=== PATIENT | female | born 1965 ===

== ENCOUNTER 2021-03-21 02:07 | Inpatient (IN) | payer BC, MEDICARE ==
[2021-03-21 06:28] LABS: Glucose,Whole Blood 152 mg/dL (75-99)
[2021-03-21] MEDS ORDERED: MELOXICAM 7.5 MG TAB PO PRN (08:58)
[2021-03-21] MEDS ORDERED: hydrOXYzine HCL 25 MG TAB PO PRN (08:58)
[2021-03-21] MEDS: PANTOPRAZOLE 40 MG TABLET PO SCH (09:52)
[2021-03-21] MEDS: busPIRone HCl 10 MG TAB PO SCH ×3 (09:52→21:34)
[2021-03-21] MEDS: VENLAFAXINE HCL ER 150 MG CAP PO SCH (09:52)
[2021-03-21] MEDS: CYCLOBENZAPRINE 10 MG TAB PO SCH ×2 (09:52→21:34)
[2021-03-21] MEDS: ATORVASTATIN 10 MG TAB PO SCH (09:52)
--- NOTE | 2021-03-21 10:56 | XR ---
EXAMINATION TYPE: XR chest 1V portable DATE OF EXAM: 03/21/2021 COMPARISON: None INDICATION: Covid TECHNIQUE: Single frontal view of the chest is obtained. FINDINGS: The heart size is normal. The pulmonary vasculature is normal. Diffuse increased lung markings are present bilaterally greater in the left perihilar and lower lobes . IMPRESSION: 1. A few scattered infiltrates greater on the left compatible with atypical pneumonia
[2021-03-21 11:20] LABS: ALT 31 U/L (4-34); AST 53 U/L (14-36); African American GFR (CKD) >90 (>60 ml/min/1.73 sqM); Albumin 3.5 g/dL (3.5-5.0); Alkaline Phosphatase 64 U/L (38-126); Anion Gap 8 mmol/L; Blood Urea Nitrogen 19 mg/dL (7-17); Calcium 9.1 mg/dL (8.4-10.2); Carbon Dioxide 29 mmol/L (22-30); Chloride 102 mmol/L (98-107); Glucose 138 mg/dL (74-99); LDH 1082 U/L (313-618); Non-African American GFR(CKD) >90 (>60 ml/min/1.73 sqM); Sodium 139 mmol/L (137-145); Total Bilirubin 0.3 mg/dL (0.2-1.3); Total Protein 6.4 g/dL (6.3-8.2)
[2021-03-21 11:21] LABS: Basophils % (A) 0 %; Eosinophils % (A) 0 %; HCT 40.2 % (34.0-46.0); HGB 13.2 gm/dL (11.4-16.0); Lymphocytes # (A) 1.5 k/uL (1.0-4.8); Lymphocytes % (A) 12 %; MCH 30.2 pg (25.0-35.0); MCHC 32.9 g/dL (31.0-37.0); MCV 91.8 fL (80.0-100.0); Monocytes # (A) 0.7 k/uL (0-1.0); Monocytes % (A) 6 %; Neutrophils # (A) 10.1 k/uL (1.3-7.7); Neutrophils % (A) 81 %; Platelet Count 512 k/uL (150-450); RBC 4.38 m/uL (3.80-5.40); WBC 12.5 k/uL (3.8-10.6)
[2021-03-21] MEDS: ALBUTEROL HFA INHALER INHALATION SCH ×3 (11:35→19:47)
[2021-03-21] MEDS: SYMBICORT 160-4.5 MCG INHALER INHALATION SCH ×2 (11:35→19:47)
[2021-03-21 11:54] LABS: Glucose,Whole Blood 137 mg/dL (75-99)
[2021-03-21] MEDS: ENOXAPARIN 40 MG/0.4 ML SYRINGE SQ SCH (12:02)
[2021-03-21] MEDS: CHOLECALCIFEROL 10 MCG (400 IU) TABLET PO SCH (12:02)
[2021-03-21] MEDS: ZINC SULFATE 220 MG CAP PO SCH (12:02)
[2021-03-21] MEDS: ASCORBIC ACID 500 MG TAB PO SCH ×2 (12:02→21:34)
[2021-03-21] MEDS: DEXAMETHASONE SOD PHOSPHATE 10 MG/ML 1 ML VIAL IV SCH (12:02)
--- NOTE | 2021-03-21 12:13 | P.CNPUL ---
History of Present Illness Consult date: 03/21/21 Requesting physician: Jameel Hall Reason for consult: dyspnea, cough, hypoxemia, pneumonia, abnormal CXR/CT Chief complaint: Shortness of breath. History of present illness: Pulmonary consult dated 03/21/2021. 55-year-old female that was transferred down from [facility]. The patient apparently became male with a respiratory illness on March 12. She apparently tested positive for coronavirus on March 18. She was there for a couple days, and apparently, because of worsening oxygenation and tolerance of the AIRVO device, she was transferred down for additional evaluation. The patient complains of shortness of breath, cough, fever, and just generally not feeling well. The patient had poor oral intake, as well as muscle aches and joint aches. She received the first of 2 of her buckner virus vaccines. Her was not vaccinated and apparently gave the illness to her. He came to the emergency room, at [place], and received monoclonal antibody. Currently, she is on BiPAP with settings of 12/5 and 70%. Chest x-ray shows diffuse bilateral infiltrates. She's getting saline at 100 mL an hour. She's feeling a bit better today than yesterday. She was at [facility] the , the first, and the second. She was admitted here early this morning. 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 Other medical problems include severe asthma, for which she is on daily prednisone 5 mg, as well as Singulair, Breo, and Fasenra, which is a monoclonal antibody against interleukin-5. In addition, she has a history of hyperlipidemia. White count 12.5, hemoglobin 13.2, hematocrit 40.2, platelet count 512,000. D-dimer is 0.36. Sodium potassium chloride CO2 all normal. Anion gap normal. BUN and creatinine were 19 and 0.48. AST 53, LDH 1082, and C-reactive protein is 5. Review of Systems REVIEW OF SYSTEMS: CONSTITUTIONAL: Fever chills, muscle aches, joint aches, and decreased oral intake. NEUROLOGIC: [ Negative.] HEENT: [ Negative.] CARDIAC: [Negative.] PULMONARY: Shortness of breath, and dry nonproductive cough. GI: [Negative.] : [Negative.] RHEUMATOLOGIC: [ Negative.] IMMUNOLOGIC: [ Negative.] ENDOCRINE: [Negative. ] DERMATOLOGIC: [Negative.] Past Medical History Past Medical History: Hyperlipidemia Additional Past Medical History / Comment(s): fast heart beat History of Any Multi-Drug Resistant Organisms: None Reported Past Surgical History: Cholecystectomy Additional Past Surgical History / Comment(s): spleenectomy, ectopic , rupture cyst Past Anesthesia/Blood Transfusion Reactions: No Reported Reaction Past Psychological History: Depression Smoking Status: Never smoker - Past Family History Father History Unknown: Yes Medications and Allergies Home Medications Medication Instructions Recorded Confirmed Type Benralizumab [Fasenra] 30 mg SQ Q56D 03/21/21 03/21/21 History Cyclobenzaprine [Flexeril] 10 mg PO BID 03/21/21 03/21/21 History Fluticasone/Vilanterol [Breo 1 puff INHALATION RT-DAILY 03/21/21 03/21/21 History Ellipta 200-25 Mcg Inhaler] Meloxicam [Mobic] 15 mg PO DAILY PRN 03/21/21 03/21/21 History Montelukast [Singulair] 10 mg PO HS 03/21/21 03/21/21 History Pantoprazole Sodium [Protonix] 40 mg PO DAILY 03/21/21 03/21/21 History Simvastatin [Zocor] 20 mg PO DAILY 03/21/21 03/21/21 History Venlafaxine HCl ER [Effexor Xr] 150 mg PO DAILY 03/21/21 03/21/21 History busPIRone HCl [Buspar] 10 mg PO TID 03/21/21 03/21/21 History hydrOXYzine HCL [Atarax] 25 mg PO TID PRN 03/21/21 03/21/21 History predniSONE 5 mg PO DAILY 03/21/21 03/21/21 History Allergies Allergy/AdvReac Type Severity Reaction Status Date / Time Penicillins Allergy Anaphylaxis Verified 03/21/21 08:25 Physical Exam Osteopathic Statement: *. No significant issues noted on an osteopathic structural exam other than those noted in the History and Physical/Consult. Vitals: Vital Signs Temp Pulse Resp BP Pulse Ox 03/21/21 08:30 97.1 F L 73 33 H 139/65 93 L 03/21/21 05:00 97.2 F L 76 21 132/69 97 03/21/21 02:38 97.6 F 79 30 H 131/73 93 L Intake and Output 03/20/21 03/21/21 03/21/21 22:59 06:59 14:59 Intake Total 300 Balance 300 Intake: Oral 300 Other: Weight 110 kg 110 kg No acute distress, oriented 3. Currently on BiPAP, without distress. HEENT examination is grossly unremarkable. Neck supple. Full range of motion. No adenopathy thyromegaly or neck vein distention. Cardiovascular examination reveals regular rhythm rate. S1-S2 normal. No S3 or S4. No discernible murmur noted. Heart sounds are distant. Heart rate 73 bpm. Lungs reveal coarse bilateral rhonchi. Minimal crackles. Breath sounds equal bilaterally. No wheezes. Saturations are 93%. Abdomen soft bowel sounds are heard. No masses or tenderness. Extremities are intact. No cyanosis clubbing or edema. Skin is without rash or lesion. Neurologic examination is brief but nonfocal. Results - Laboratory Findings CBC and BMP: 03/21/21 10:19 03/21/21 10:19 PT/INR, D-dimer D-Dimer 0.36 mg/L FEU (<0.60) 03/21/21 10:19 Abnormal lab findings: Abnormal Labs 03/21/21 03/21/21 03/21/21 06:27 10:19 10:19 WBC 12.5 H Plt Count 512 H Neutrophils # 10.1 H BUN 19 H Creatinine 0.48 L Glucose 138 H POC Glucose (mg/dL) 152 H AST 53 H Lactate Dehydrogenase 1082 H C-Reactive Protein 5.0 H 03/21/21 11:46 WBC Plt Count Neutrophils # BUN Creatinine Glucose POC Glucose (mg/dL) 137 H AST Lactate Dehydrogenase C-Reactive Protein - Diagnostic Findings Chest x-ray: image reviewed Assessment and Plan Assessment: Acute hypoxemic respiratory failure, secondary to COVID 19 pneumonia. History of severe asthma, currently on daily prednisone, and a monoclonal antibody against interleukin-5(Fasenra). History of hyperlipidemia. Status post 1 dose of her coronavirus vaccine. Plan: Plan dated 03/21/2021. In my opinion, the patient is beyond the seven-day window for REM. The patient is currently in my opinion is not sick enough to receive the monoclonal antibody against interleukin-6. Hence, the patient's place and an albuterol inhaler, Symbicort, 160/4.5, 2 puffs twice a day, vitamin C, vitamin D3, and zinc, as well as Singulair, Decadron, and Lovenox 40 mg subcu daily. Follow the patient closely. Additional recommendations and suggestions are forthcoming. A chest x-ray and labs are ordered. They are reviewed. Also, paperwork and documen tation from the other hospital are reviewed. Time with Patient: Greater than 30
[2021-03-21 16:46] LABS: Glucose,Whole Blood 167 mg/dL (75-99)
--- NOTE | 2021-03-21 17:14 | P.HPIM ---
History of Present Illness H&P Date: 03/21/21 Chief Complaint: Dyspnea/COVID-19 pneumonia 55-year-old female, with history of hyperlipidemia, transferred to our facility from [facility]. The patient became with a respiratory illness on March 12 and tested positive for coronavirus on March 18. She was there for a couple days, and apparently, because of worsening oxygenation and tolerance of the AIRVO device, she was transferred down for additional evaluation. The patient complains of shortness of breath, cough, fever, and just generally not feeling well. The patient had poor oral intake, as well as muscle aches and joint aches. She received the first of 2 of her buckner virus vaccines. Her w as not vaccinated and apparently gave the illness to her. He came to the emergency room, at [place], and received monoclonal antibody. Currently, she is on BiPAP with settings of 12/5 and 70%. Chest x-ray shows diffuse bilateral infiltrates. She does have a previous history of severe asthma, for which she is on daily prednisone 5 mg, as well as Singulair, Breo, and Fasenra, which is a monoclonal antibody against interleukin-5. In addition, she has a history of hyperlipidemia. White count 12.5, hemoglobin 13.2, hematocrit 40.2, platelet count 512,000. D-dimer is 0.36. Sodium potassium chloride CO2 all normal. Anion gap normal. BUN and creatinine were 19 and 0.48. AST 53, LDH 1082, and C-reactive protein is 5. Review of Systems REVIEW OF SYSTEMS: CONSTITUTIONAL: No fever, no malaise, no fatigue. HEENT: No recent visual problems or hearing problems. Denied any sore throat. CARDIOVASCULAR: No chest pain, orthopnea, PND, no palpitations, no syncope. PULMONARY: No shortness of breath, no cough, no hemoptysis. GASTROINTESTINAL: No diarrhea, no nausea, no vomiting, no abdominal pain. NEUROLOGICAL: No headaches, no weakness, no numbness. HEMATOLOGICAL: Denies any bleeding or petechiae. GENITOURINARY: Denies any burning micturition, frequency, or urgency. MUSCULOSKELETAL/RHEUMATOLOGICAL: Denies any joint pain, swelling, or any muscle pain. ENDOCRINE: Denies any polyuria or polydipsia. The rest of the 14-point review of systems is negative. Past Medical History Past Medical History: Hyperlipidemia Additional Past Medical History / Comment(s): fast heart beat History of Any Multi-Drug Resistant Organisms: None Reported Past Surgical History: Cholecystectomy Additional Past Surgical History / Comment(s): spleenectomy, ectopic , rupture cyst Past Anesthesia/Blood Transfusion Reactions: No Reported Reaction Past Psychological History: Depression Smoking Status: Never smoker - Past Family History Father History Unknown: Yes Medications and Allergies Home Medications Medication Instructions Recorded Confirmed Type Benralizumab [Fasenra] 30 mg SQ Q56D 03/21/21 03/21/21 History Cyclobenzaprine [Flexeril] 10 mg PO BID 03/21/21 03/21/21 History Fluticasone/Vilanterol [Breo 1 puff INHALATION RT-DAILY 03/21/21 03/21/21 History Ellipta 200-25 Mcg Inhaler] Meloxicam [Mobic] 15 mg PO DAILY PRN 03/21/21 03/21/21 History Montelukast [Singulair] 10 mg PO HS 03/21/21 03/21/21 History Pantoprazole Sodium [Protonix] 40 mg PO DAILY 03/21/21 03/21/21 History Simvastatin [Zocor] 20 mg PO DAILY 03/21/21 03/21/21 History Venlafaxine HCl ER [Effexor Xr] 150 mg PO DAILY 03/21/21 03/21/21 History busPIRone HCl [Buspar] 10 mg PO TID 03/21/21 03/21/21 History hydrOXYzine HCL [Atarax] 25 mg PO TID PRN 03/21/21 03/21/21 History predniSONE 5 mg PO DAILY 03/21/21 03/21/21 History Allergies Allergy/AdvReac Type Severity Reaction Status Date / Time Penicillins Allergy Anaphylaxis Verified 03/21/21 08:25 Physical Exam Vitals: Vital Signs Temp Pulse Resp BP Pulse Ox 03/21/21 08:30 97.1 F L 73 33 H 139/65 93 L 03/21/21 05:00 97.2 F L 76 21 132/69 97 03/21/21 02:38 97.6 F 79 30 H 131/73 93 L Intake and Output 03/20/21 03/21/21 03/21/21 22:59 06:59 14:59 Intake Total 300 Balance 300 Intake: Oral 300 Other: Weight 110 kg 110 kg General appearance: Present: average body habitus, cooperative, no acute distress Eyes: Present: anicteric sclerae, EOMI, PERRLA, normal appearance ENT: Present: hearing grossly normal, normal oropharynx Neck: Present: normal ROM. Absent: lymphadenopathy, rigidity, thyromegaly Carotids: negative: bruit present Thyroid: bilateral: normal size, negative: enlarged, nodule Respiratory: bilateral: Scattered rhonchi and wheezes Heart sounds: normal: S1, S2 Abnormal Heart Sounds: Absent: systolic murmur, diastolic murmur General gastrointestinal: Present: normal bowel sounds, soft. Absent: distended, organomegaly, tenderness Genitourinary Comment(s): deferred Integumentary: Present: normal turgor. Absent: jaundiced, rash, ulcer Neurologic: Present: CNII-XII intact. Absent: focal deficits Musculoskeletal: Present: gait normal, strength equal bilaterally Psychiatric: Present: A&O x's 3, appropriate affect, intact judgment & insight Results CBC & Chem 7: 03/21/21 10:19 03/21/21 10:19 Labs: Abnormal Lab Results - Last 24 Hours (Table) 03/21/21 03/21/21 03/21/21 Range/Units 06:27 10:19 10:19 WBC 12.5 H (3.8-10.6) k/uL Plt Count 512 H (150-450) k/uL Neutrophils # 10.1 H (1.3-7.7) k/uL BUN 19 H (7-17) mg/dL Creatinine 0.48 L (0.52-1.04) mg/dL Glucose 138 H (74-99) mg/dL POC Glucose (mg/dL) 152 H (75-99) mg/dL AST 53 H (14-36) U/L Lactate Dehydrogenase 1082 H (313-618) U/L C-Reactive Protein 5.0 H (<1.0) mg/dL Thrombosis Risk Factor Assmnt - Choose All That Apply Any of the Below Risk Factors Present?: Yes Each Factor Represents 1 point: Age 41-60 years, Obesity (BMI >25) Thrombosis Risk Factor Assessment Total Risk Factor Score: 2 Thrombosis Risk Factor Assessment Level: Low Risk Assessment and Plan Assessment: 1. Acute hypoxemic respiratory failure; patient is currently on BiPAP, with FiO 2 of 70% and saturating 91% 2. COVID-19 pneumonia Patient has been evaluated by pulmonary service and is beyond the seven-day window for REM. The patient is currently in my opinion is not sick enough to receive the monoclonal antibody against interleukin-6. Hence, the patient's place and an albuterol inhaler, Symbicort, 160/4.5, 2 puffs twice a day, vitamin C, vitamin D3, and zinc, as well as Singulair, Decadron, and Lovenox 40 mg subcu daily. 3. History of severe asthma; patient is currently on prednisone 5 mg daily and monoclonal anti-body against interleukin-5; Singulair 10 mg daily 4. Hyperlipidemia; Zocor 20 mg daily at bedtime 5. Anxiety/depression; remains on BuSpar 5 mg daily and Effexor 150 mg daily DVT prophylaxis; subcu Lovenox CODE STATUS; DO NOT RESUSCITATE
[2021-03-21 20:02] LABS: Glucose,Whole Blood 200 mg/dL (75-99)
[2021-03-21] MEDS: MONTELUKAST 10 MG TAB PO SCH (21:34)
[2021-03-22 06:05] LABS: Glucose,Whole Blood 146 mg/dL (75-99)
[2021-03-22] MEDS: ALBUTEROL HFA INHALER INHALATION SCH ×4 (08:27→20:24)
[2021-03-22] MEDS: SYMBICORT 160-4.5 MCG INHALER INHALATION SCH ×2 (08:27→20:24)
[2021-03-22] MEDS: PANTOPRAZOLE 40 MG TABLET PO SCH (09:12)
[2021-03-22] MEDS: CHOLECALCIFEROL 10 MCG (400 IU) TABLET PO SCH (09:12)
[2021-03-22] MEDS: CYCLOBENZAPRINE 10 MG TAB PO SCH ×2 (09:12→22:08)
[2021-03-22] MEDS: ATORVASTATIN 10 MG TAB PO SCH (09:12)
[2021-03-22] MEDS: VENLAFAXINE HCL ER 150 MG CAP PO SCH (09:12)
[2021-03-22] MEDS: busPIRone HCl 10 MG TAB PO SCH ×3 (09:12→22:08)
[2021-03-22] MEDS: ASCORBIC ACID 500 MG TAB PO SCH ×2 (09:12→22:08)
[2021-03-22] MEDS: ZINC SULFATE 220 MG CAP PO SCH (09:13)
[2021-03-22] MEDS: ENOXAPARIN 40 MG/0.4 ML SYRINGE SQ SCH (09:13)
[2021-03-22] MEDS: DEXAMETHASONE SOD PHOSPHATE 10 MG/ML 1 ML VIAL IV SCH (09:13)
[2021-03-22] MEDS: BARICITINIB 2 MG TABLET PO SCH ×2 (12:00→12:01)
[2021-03-22 12:04] LABS: Glucose,Whole Blood 151 mg/dL (75-99)
--- NOTE | 2021-03-22 13:54 | P.PN ---
Subjective Progress Note Date: 03/22/21 55-year-old female that was transferred down from [facility]. The patient apparently became male with a respiratory illness on March 12. She apparently tested positive for coronavirus on March 18. She was there for a couple days, and apparently, because of worsening oxygenation and tolerance of the AIRVO device, she was transferred down for additional evaluation. The patient complains of shortness of breath, cough, fever, and just generally not feeling well. The patient had poor oral intake, as well as muscle aches and joint aches. She received the first of 2 of her buckner virus vaccines. Her was not vaccinated and apparently gave the illness to her. He came to the emergency room, at [place], and received monoclonal antibody. Currently, she is on BiPAP with settings of 12/5 and 70%. Chest x-ray shows diffuse bilateral infiltrates. She's getting saline at 100 mL an hour. She's feeling a bit better today than yesterday. She was at [facility] the , the first, and the second. She was admitted here early this morning. 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 Other medical problems include severe asthma, for which she is on daily prednisone 5 mg, as well as Singulair, Breo, and Fasenra, which is a monoclonal antibody against interleukin-5. In addition, she has a history of hyperlipidemia. White count 12.5, hemoglobin 13.2, hematocrit 40.2, platelet count 512,000. D-dimer is 0.36. Sodium potassium chloride CO2 all normal. Anion gap normal. BUN and creatinine were 19 and 0.48. AST 53, LDH 1082, and C-reactive protein is 5. The patient is seen today 03/22/2021 in follow-up on the regular medical floor. She is currently resting fairly comfortably in bed. Awake and alert in mild respiratory distress. Alternating BiPAP 12/5 and 70% FiO2 with 15 L high flow nasal cannula. Blood glucose 151. She remains on Symbicort, albuterol. She is maintained on Decadron, Lovenox, Bariticinib, vitamin supplements. Objective - Vital Signs Vital signs: Vital Signs Temp 97.7 F 03/22/21 08:00 Pulse 77 03/22/21 08:00 Resp 28 H 03/22/21 08:00 BP 121/75 09/04/21 08:00 Pulse Ox 89 L 03/22/21 08:00 Intake & Output 03/21/21 03/22/21 03/22/21 18:59 06:59 18:59 Intake Total 1040 20 128 Balance 1040 20 128 Weight 110 kg 105.4 kg Intake: IV 20 10 Invasive Line 1 20 10 Oral 1040 118 Other: # Voids 2 # Bowel Movements 1 - Exam GENERAL EXAM: Alert, pleasant 55-year-old female patient, alternating with BiPAP and 15 L high flow nasal cannula, fairly comfortable in no apparent distress. HEAD: Normocephalic. EYES: Normal reaction of pupils, equal size. NOSE: Clear with pink turbinates. THROAT: No erythema or exudates. NECK: No masses, no JVD. CHEST: No chest wall deformity. LUNGS: Equal air entry with bibasilar crackles. CVS: S1 and S2 normal with no audible murmur, regular rhythm. ABDOMEN: No hepatosplenomegaly, normal bowel sounds, no guarding or rigidity. SPINE: No scoliosis or deformity SKIN: No rashes CENTRAL NERVOUS SYSTEM: No focal deficits, tone is normal in all 4 extremities. EXTREMITIES: There is no peripheral edema. No clubbing, no cyanosis. Peripheral pulses are intact. - Labs CBC & Chem 7: 03/21/21 10:19 03/21/21 10:19 Labs: Abnormal Lab Results - Last 24 Hours (Table) 03/21/21 03/21/21 03/22/21 Range/Units 16:44 20:00 06:03 POC Glucose (mg/dL) 167 H 200 H 146 H (75-99) mg/dL 03/22/21 Range/Units 11:55 POC Glucose (mg/dL) 151 H (75-99) mg/dL Assessment and Plan Assessment: 1 Acute hypoxemic respiratory failure, secondary to COVID 19 pneumonia. 2 History of severe asthma, currently on daily prednisone, and a monoclonal antibody against interleukin-5(Fasenra). 3 History of hyperlipidemia. 4 Status post 1 dose of her coronavirus vaccine. Plan: The patient was seen and evaluated by Dr. Og Continue Baricitinib, Decadron, Lovenox, vitamin supplements Follow-up inflammatory markers, chest x-ray in a.m. Titrate the FiO2 as tolerated Progress prognosis is guarded We'll continue to follow I, the cosigning physician, performed a history & physical examination of the patient. Lungs sounds with crackles in the bilateral bases. Maintaining O2 saturations in the 90s alternating BiPAP at 70% FiO2 with 15 L high flow nasal cannula. I discussed the assessment and plan of care with my nurse practitioner, Moriah Anna. I attest to the above note as dictated by her.
[2021-03-22 16:54] LABS: Glucose,Whole Blood 142 mg/dL (75-99)
--- NOTE | 2021-03-22 17:37 | P.PN ---
Subjective Progress Note Date: 03/22/21 Principal diagnosis: Acute hypoxemic respiratory failure COVID-19 pneumonia 55-year-old female, with history of hyperlipidemia, transferred to our facility from [facility]. The patient became with a respiratory illness on March 12 and tested positive for coronavirus on March 18. She was there for a couple days, and apparently, because of worsening oxygenation and tolerance of the AIRVO device, she was transferred down for additional evaluation. The patient complains of shortness of breath, cough, fever, and just generally not feeling well. The patient had poor oral intake, as well as muscle aches and joint aches. She received the first of 2 of her buckner virus vaccines. Her was not vaccinated and apparently gave the illness to her. He came to the emergency room, at [place], and received monoclonal antibody. Currently, she is on BiPAP with settings of 12/5 and 70%. Chest x-ray shows diffuse bilateral infiltrates. She does have a previous history of severe asthma, for which she is on daily prednisone 5 mg, as well as Singulair, Breo, and Fasenra, which is a monoclonal antibody against interleukin-5. In addition, she has a history of hyperlipidemia. White count 12.5, hemoglobin 13.2, hematocrit 40.2, platelet count 512,000. D-dimer is 0.36. Sodium potassium chloride CO2 all normal. Anion gap normal. BUN and creatinine were 19 and 0.48. AST 53, LDH 1082, and C-reactive protein is 5. Objective - Vital Signs Vital signs: Vital Signs Temp 97.7 F 03/22/21 08:00 Pulse 77 03/22/21 08:00 Resp 28 H 03/22/21 08:00 BP 121/75 03/22/21 08:00 Pulse Ox 89 L 03/22/21 08:00 Intake & Output 03/21/21 03/22/21 03/22/21 18:59 06:59 18:59 Intake Total 1040 20 128 Balance 1040 20 128 Weight 110 kg 105.4 kg Intake: IV 20 10 Invasive Line 1 20 10 Oral 1040 118 Other: # Voids 2 # Bowel Movements 1 - Exam General appearance: Present: average body habitus, cooperative, no acute distress Respiratory: bilateral: Scattered rhonchi and wheezes Heart sounds: normal: S1, S2 Abnormal Heart Sounds: Absent: systolic murmur, diastolic murmur General gastrointestinal: Present: normal bowel sounds, soft. Absent: distended, organomegaly, tenderness Genitourinary Comment(s): deferred Integumentary: Present: normal turgor. Absent: jaundiced, rash, ulcer Neurologic: Present: CNII-XII intact. Absent: focal deficits Musculoskeletal: Present: gait normal, strength equal bilaterally Psychiatric: Present: A&O x's 3, appropriate affect, intact judgment & insight - Labs CBC & Chem 7: 03/21/21 10:19 03/21/21 10:19 Labs: Abnormal Lab Results - Last 24 Hours (Table) 03/21/21 03/21/21 03/22/21 Range/Units 16:44 20:00 06:03 POC Glucose (mg/dL) 167 H 200 H 146 H (75-99) mg/dL 03/22/21 Range/Units 11:55 POC Glucose (mg/dL) 151 H (75-99) mg/dL Assessment and Plan Assessment: 1. Acute hypoxemic respiratory failure; patient is currently on BiPAP, with FiO2 of 70% and saturating 91% 2. COVID-19 pneumonia Patient has been evaluated by pulmonary service and is beyond the seven-day window for REM. The patient is currently in my opinion is not sick enough to receive the monoclonal antibody against interleukin-6. Hence, the patient's place and an albuterol inhaler, Symbicort, 160/4.5, 2 puffs twice a day, vitamin C, vitamin D3, and zinc, as well as Singulair, Decadron, and Lovenox 40 mg subcu daily. 3. History of severe asthma; patient is currently on prednisone 5 mg daily and monoclonal anti-body against interleukin-5; Singulair 10 mg daily 4. Hyperlipidemia; Zocor 20 mg daily at bedtime 5. Anxiety/depression; remains on BuSpar 5 mg daily and Effexor 150 mg daily DVT prophylaxis; subcu Lovenox CODE STATUS; DO NOT RESUSCITATE
[2021-03-22 20:38] LABS: Glucose,Whole Blood 145 mg/dL (75-99)
[2021-03-22] MEDS: MONTELUKAST 10 MG TAB PO SCH (22:08)
[2021-03-23 06:23] LABS: Glucose,Whole Blood 96 mg/dL (75-99)
--- NOTE | 2021-03-23 07:30 | XR ---
EXAMINATION TYPE: XR chest 1V portable DATE OF EXAM: 03/23/2021 COMPARISON: Radiograph March 21, 2021 HISTORY: COVID TECHNIQUE: Single frontal view of the chest is obtained. FINDINGS: There is improved aeration bilaterally with residual patchy opacities over the left greate r than right lungs. The cardiomediastinal silhouette is stable. IMPRESSION: Multifocal pneumonia with improved aeration bilaterally.
[2021-03-23 09:10] LABS: C Reactive Protein 5.8 mg/dL (<1.0)
[2021-03-23] MEDS: SYMBICORT 160-4.5 MCG INHALER INHALATION SCH ×2 (09:11→20:31)
[2021-03-23] MEDS: ALBUTEROL HFA INHALER INHALATION SCH ×4 (09:11→20:30)
[2021-03-23] MEDS: CYCLOBENZAPRINE 10 MG TAB PO SCH ×2 (09:20→20:30)
[2021-03-23] MEDS: ASCORBIC ACID 500 MG TAB PO SCH ×2 (09:21→20:30)
[2021-03-23] MEDS: ZINC SULFATE 220 MG CAP PO SCH (09:21)
[2021-03-23] MEDS: VENLAFAXINE HCL ER 150 MG CAP PO SCH (09:21)
[2021-03-23] MEDS: CHOLECALCIFEROL 10 MCG (400 IU) TABLET PO SCH (09:21)
[2021-03-23] MEDS: PANTOPRAZOLE 40 MG TABLET PO SCH (09:21)
[2021-03-23] MEDS: busPIRone HCl 10 MG TAB PO SCH ×3 (09:21→20:30)
[2021-03-23] MEDS: ATORVASTATIN 10 MG TAB PO SCH (09:21)
[2021-03-23] MEDS: DEXAMETHASONE SOD PHOSPHATE 10 MG/ML 1 ML VIAL IV SCH (09:22)
[2021-03-23] MEDS: ENOXAPARIN 40 MG/0.4 ML SYRINGE SQ SCH (09:23)
[2021-03-23 12:00] LABS: Glucose,Whole Blood 110 mg/dL (75-99)
[2021-03-23] MEDS: BARICITINIB 2 MG TABLET PO SCH (12:16)
--- NOTE | 2021-03-23 12:53 | P.PN ---
Subjective Progress Note Date: 03/23/21 Principal diagnosis: Coronavirus infection. 55-year-old female that was transferred down from [facility]. The patient apparently became male with a respiratory illness on March 12. She apparently tested positive for coronavirus on March 18. She was there for a couple days, and apparently, because of worsening oxygenation and tolerance of the AIRVO device, she was transferred down for additional evaluation. The patient complains of shortness of breath, cough, fever, and just generally not feeling well. The patient had poor oral intake, as well as muscle aches and joint aches. She received the first of 2 of her buckner virus vaccines. Her was not vaccinated and apparently gave the illness to her. He came to the emergency room, at [place], and received monoclonal antibody. Currently, she is on BiPAP with settings of 12/5 and 70%. Chest x-ray shows diffuse bilateral infiltrates. She's getting saline at 100 mL an hour. She's feeling a bit better today than yesterday. She was at [facility] the , the first, and the second. She was admitted here early this morning. 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 Other medical problems include severe asthma, for which she is on daily prednisone 5 mg, as well as Singulair, [place], and Fasenra, which is a monoclonal antibody against interleukin-5. In addition, she has a history of hyperlipidemia. White count 12.5, hemoglobin 13.2, hematocrit 40.2, platelet count 512,000. D-dimer is 0.36. Sodium potassium chloride CO2 all normal. Anion gap normal. BUN and creatinine were 19 and 0.48. AST 53, LDH 1082, and C-reactive protein is 5. The patient is seen today 03/22/2021 in follow-up on the regular medical floor. She is currently resting fairly comfortably in bed. Awake and alert in mild respiratory distress. Alternating BiPAP 12/5 and 70% FiO2 with 15 L high flow nasal cannula. Blood glucose 151. She remains on Symbicort, albuterol. She is maintained on Decadron, Lovenox, Bariticinib, vitamin supplements. Progress note dated 04/02/2021. This is a 55-year-old female, with a history of coronavirus pneumonia. The patient currently remains on BiPAP, with settings of IPAP 12, EPAP 5, and 70% FiO2. The patient is receiving appropriate medications including Symbicort, albuterol, Decadron, vitamins, Lovenox, and Bariticinib. When asked, the patient states that she is feeling a bit better. Labs today include a sugar of 110, and a d-dimer of 1.45. LDH is 1985, and C-reactive protein is 5.8. Chest x-ray from today is compared to a chest x-ray done on March 21. In our opinion, and also the opinion of the radiologist, the chest x-ray does show improvement. Objective - Vital Signs Vital signs: Vital Signs Temp 97.7 F 03/23/21 04:00 Pulse 69 03/23/21 04:00 Resp 26 H 03/23/21 04:00 BP 107/69 03/23/21 04:00 Pulse Ox 92 L 03/23/21 04:00 Intake & Output 03/22/21 03/23/21 03/23/21 18:59 06:59 18:59 Intake Total 1098 20 240 Balance 1098 20 240 Weight 107 kg Intake: IV 20 20 Invasive Line 1 20 20 Oral 1078 240 Other: # Voids 2 3 - Exam Oriented 3, mild conversational dyspnea, without audible wheezing, or use of accessory muscles. HEENT examination is grossly unremarkable. BiPAP mask in place. Neck supple. Full range of motion. No adenopathy thyromegaly or neck vein distention. Cardiovascular examination reveals regular rhythm rate. S1-S2 normal. No S3 or S4. No discernible murmur noted. Heart sounds are very distant. Heart rate 69 bpm. Lungs reveal diffuse bilateral rhonchi. No wheezes or crackles. Breath sounds equal bilaterally. She does not take deep breaths. Abdomen soft bowel sounds are heard. No masses or tenderness. Extremities are intact. No cyanosis clubbing or edema. Skin is without rash or lesion. Neurologic examination is brief but nonfocal. - Labs CBC & Chem 7: 03/21/21 10:19 03/21/21 10:19 Labs: Abnormal Lab Results - Last 24 Hours (Table) 03/22/21 03/22/21 03/23/21 Range/Units 16:52 20:37 07:35 D-Dimer 1.45 H (<0.60) mg/L FEU POC Glucose (mg/dL) 142 H 145 H (75-99) mg/dL Lactate Dehydrogenase (313-618) U/L C-Reactive Protein (<1.0) mg/dL 03/23/21 03/23/21 Range/Units 07:35 11:55 D-Dimer (<0.60) mg/L FEU POC Glucose (mg/dL) 110 H (75-99) mg/dL Lactate Dehydrogenase 985 H (313-618) U/L C-Reactive Protein 5.8 H (<1.0) mg/dL Assessment and Plan Assessment: Acute hypoxemic respiratory failure, secondary to COVID 19 pneumonia. History of severe asthma, currently on daily prednisone, and a monoclonal antibody against interleukin-5(Fasenra). History of hyperlipidemia. Status post 1 dose of her coronavirus vaccine. Plan: Plan dated 03/21/2021. In my opinion, the patient is beyond the seven-day window for REM. The patient is currently in my opinion is not sick enough to receive the monoclonal antibody against interleukin-6. Hence, the patient's place and an albuterol inhaler, Symbicort, 160/4.5, 2 puffs twice a day, vitamin C, vitamin D3, and zinc, as well as Singulair, Decadron, and Lovenox 40 mg subcu daily. Follow the patient closely. Additional recommendations and suggestions are forthcoming. A chest x-ray and labs are ordered. They are reviewed. Also, paperwork and documentation from the other hospital are reviewed. Plan dated 03/23/2021. Currently, the patient feels like she is improved. Her chest x-ray today compared to the x-ray done on March 21, certainly better. She remains on all appropriate medications. The patient was not a candidate for REM. She is receiving all other appropriate medications including Decadron, Lovenox, vitamins, and the monoclonal antibody against interleukin-6. We will continue to follow. The patient has made herself a no code. She would not want me chanical ventilation. Time with Patient: Less than 30
[2021-03-23 17:21] LABS: Glucose,Whole Blood 162 mg/dL (75-99)
--- NOTE | 2021-03-23 17:52 | P.PN ---
Subjective Progress Note Date: 03/23/21 Principal diagnosis: Acute hypoxemic respiratory failure COVID-19 pneumonia 55-year-old female, with history of hyperlipidemia, transferred to our facility from [facility]. The patient became with a respiratory illness on March 12 and tested positive for coronavirus on March 18. She was there for a couple days, and apparently, because of worsening oxygenation and tolerance of the AIRVO device, she was transferred down for additional evaluation. The patient complains of shortness of breath, cough, fever, and just generally not feeling well. The patient had poor oral intake, as well as muscle aches and joint aches. She received the first of 2 of her buckner virus vaccines. Her was not vaccinated and apparently gave the illness to her. He came to the emergency room, at [place], and received monoclonal antibody. Currently, she is on BiPAP with settings of 12/5 and 70%. Chest x-ray shows diffuse bilateral infiltrates. She does have a previous history of severe asthma, for which she is on daily prednisone 5 mg, as well as Singulair, Breo, and Fasenra, which is a monoclonal antibody against interleukin-5. In addition, she has a history of hyperlipidemia. White count 12.5, hemoglobin 13.2, hematocrit 40.2, platelet count 512,000. D-dimer is 0.36. Sodium potassium chloride CO2 all normal. Anion gap normal. BUN and creatinine were 19 and 0.48. AST 53, LDH 1082, and C-reactive protein is 5. 03/23/2021 The patient is seen and evaluated in room at bedside; currently remains on BiPA P, with settings of IPAP 12, EPAP 5, and 70% FiO2. The patient is receiving appropriate medications including Symbicort, albuterol, Decadron, vitamins, Lovenox, and Bariticinib. When asked, the patient states that she is feeling a bit better. Labs today include a sugar of 110, and a d-dimer of 1.45. LDH is 1985, and C-reactive protein is 5.8. Chest x-ray from today is compared to a chest x-ray done on March 21, does show improvement. Objective - Vital Signs Vital signs: Vital Signs Temp 97.7 F 03/23/21 04:00 Pulse 69 03/23/21 04:00 Resp 26 H 03/23/21 04:00 BP 107/69 03/23/21 04:00 Pulse Ox 92 L 03/23/21 04:00 Intake & Output 03/22/21 03/23/21 03/23/21 18:59 06:59 18:59 Intake Total 1098 20 240 Balance 1098 20 240 Weight 107 kg Intake: IV 20 20 Invasive Line 1 20 20 Oral 1078 240 Other: # Voids 2 3 - Exam General appearance: Present: average body habitus, cooperative, no acute distress Respiratory: bilateral: Scattered rhonchi and wheezes Heart sounds: normal: S1, S2 Abnormal Heart Sounds: Absent: systolic murmur, diastolic murmur General gastrointestinal: Present: normal bowel sounds, soft. Absent: dis tended, organomegaly, tenderness Genitourinary Comment(s): deferred Integumentary: Present: normal turgor. Absent: jaundiced, rash, ulcer Neurologic: Present: CNII-XII intact. Absent: focal deficits Musculoskeletal: Present: gait normal, strength equal bilaterally Psychiatric: Present: A&O x's 3, appropriate affect, intact judgment & insight - Labs CBC & Chem 7: 03/21/21 10:19 03/21/21 10:19 Labs: Abnormal Lab Results - Last 24 Hours (Table) 03/22/21 03/22/21 03/22/21 Range/Units 11:55 16:52 20:37 D-Dimer (<0.60) mg/L FEU POC Glucose (mg/dL) 151 H 142 H 145 H (75-99) mg/dL Lactate Dehydrogenase (313-618) U/L C-Reactive Protein (<1.0) mg/dL 03/23/21 03/23/21 Range/Units 07:35 07:35 D-Dimer 1.45 H (<0.60) mg/L FEU POC Glucose (mg/dL) (75-99) mg/dL Lactate Dehydrogenase 985 H (313-618) U/L C-Reactive Protein 5.8 H (<1.0) mg/dL Assessment and Plan Assessment: 1. Acute hypoxemic respiratory failure; patient is currently on BiPAP, with FiO2 of 70% and saturating 91% 2. COVID-19 pneumonia Patient has been evaluated by pulmonary service and is beyond the seven-day window for REM. The patient is currently in my opinion is not sick enough to receive the monoclonal antibody against interleukin-6. Hence, the patient's place and an albuterol inhaler, Symbicort, 160/4.5, 2 puffs twice a day, vitamin C, vitamin D3, and zinc, as well as Singulair, Decadron, and Lovenox 40 mg subcu daily. 3. History of severe asthma; patient is currently on prednisone 5 mg daily and monoclonal anti-body against interleukin-5; Singulair 10 mg daily 4. Hyperlipidemia; Zocor 20 mg daily at bedtime 5. Anxiety/depression; remains on BuSpar 5 mg daily and Effexor 150 mg daily DVT prophylaxis; subcu Lovenox CODE STATUS; DO NOT RESUSCITATE
[2021-03-23 20:22] LABS: Glucose,Whole Blood 130 mg/dL (75-99)
[2021-03-23] MEDS: MONTELUKAST 10 MG TAB PO SCH (20:30)
[2021-03-24 06:23] LABS: Glucose,Whole Blood 103 mg/dL (75-99)
[2021-03-24] MEDS: ALBUTEROL HFA INHALER INHALATION SCH ×4 (08:49→20:04)
[2021-03-24] MEDS: SYMBICORT 160-4.5 MCG INHALER INHALATION SCH ×2 (08:49→20:04)
[2021-03-24] MEDS: ENOXAPARIN 40 MG/0.4 ML SYRINGE SQ SCH (09:31)
[2021-03-24] MEDS: ASCORBIC ACID 500 MG TAB PO SCH ×2 (09:31→21:30)
[2021-03-24] MEDS: busPIRone HCl 10 MG TAB PO SCH ×3 (09:31→21:30)
[2021-03-24] MEDS: PANTOPRAZOLE 40 MG TABLET PO SCH (09:31)
[2021-03-24] MEDS: ZINC SULFATE 220 MG CAP PO SCH (09:31)
[2021-03-24] MEDS: DEXAMETHASONE SOD PHOSPHATE 10 MG/ML 1 ML VIAL IV SCH (09:31)
[2021-03-24] MEDS: CYCLOBENZAPRINE 10 MG TAB PO SCH ×2 (09:31→21:30)
[2021-03-24] MEDS: CHOLECALCIFEROL 10 MCG (400 IU) TABLET PO SCH (09:31)
[2021-03-24] MEDS: VENLAFAXINE HCL ER 150 MG CAP PO SCH (09:31)
[2021-03-24] MEDS: ATORVASTATIN 10 MG TAB PO SCH (09:31)
[2021-03-24 12:11] LABS: Glucose,Whole Blood 107 mg/dL (75-99)
[2021-03-24] MEDS: methylPREDNISolone SOD SUCCI 125 MG/2 ML VIAL IV SCH ×3 (12:23→23:38)
[2021-03-24] MEDS: BARICITINIB 2 MG TABLET PO SCH (12:24)
--- NOTE | 2021-03-24 13:06 | P.PN ---
Subjective Progress Note Date: 03/24/21 55-year-old female that was transferred down from [facility]. The patient apparently became male with a respiratory illness on March 12. She apparently tested positive for coronavirus on March 18. She was there for a couple days, and apparently, because of worsening oxygenation and tolerance of the AIRVO device, she was transferred down for additional evaluation. The patient complains of shortness of breath, cough, fever, and just generally not feeling well. The patient had poor oral intake, as well as muscle aches and joint aches. She received the first of 2 of her buckner virus vaccines. Her was not vaccinated and apparently gave the illness to her. He came to the emergency room, at [place], and received monoclonal antibody. Currently, she is on BiPAP with settings of 12/5 and 70%. Chest x-ray shows diffuse bilateral infiltrates. She's getting saline at 100 mL an hour. She's feeling a bit better today than yesterday. She was at [facility] the , the first, and the second. She was admitted here early this morning. 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 Other medical problems include severe asthma, for which she is on daily prednisone 5 mg, as well as Singulair, Breo, and Fasenra, which is a monoclonal antibody against interleukin-5. In addition, she has a history of hyperlipidemia. White count 12.5, hemoglobin 13.2, hematocrit 40.2, platelet count 512,000. D-dimer is 0.36. Sodium potassium chloride CO2 all normal. Anion gap normal. BUN and creatinine were 19 and 0.48. AST 53, LDH 1082, and C-reactive protein is 5. The patient is seen today 03/22/2021 in follow-up on the regular medical floor. She is currently resting fairly comfortably in bed. Awake and alert in mild respiratory distress. Alternating BiPAP 12/5 and 70% FiO2 with 15 L high flow nasal cannula. Blood glucose 151. She remains on Symbicort, albuterol. She is maintained on Decadron, Lovenox, Bariticinib, vitamin supplements. The patient is seen today 03/24/2021 in follow-up on the regular medical floor. She is currently sitting up at the bedside. Awake and alert in no acute distress. She is still requiring BiPAP support 12/5 and 70% FiO2 to maintain O2 saturations in the 90s. She is able to tolerate 15 L high flow nasal cannula for meals. She is afebrile. Blood glucose 107. She remains on Symbicort, albuterol. Bariticinib. Decadron. Vitamin supplements. Lovenox for DVT prophylaxis. Objective - Vital Signs Vital signs: Vital Signs Temp 98.2 F 03/24/21 08:00 Pulse 79 03/24/21 08:00 Resp 26 H 03/24/21 08:00 BP 98/55 03/24/21 08:00 Pulse Ox 95 03/24/21 08:00 Intake & Output 03/23/21 03/24/21 03/24/21 18:59 06:59 18:59 Intake Total 2019 20 410 Balance 2019 20 410 Weight 105 kg Intake: IV 20 20 10 Invasive Line 1 20 10 Invasive Line 2 10 10 Oral 2000 400 Other: # Voids 2 3 - Exam GENERAL EXAM: Alert, pleasant 55-year-old female patient, alternating with BiPAP and 15 L high flow nasal cannula, fairly comfortable in mild respiratory distress. HEAD: Normocephalic. EYES: Normal reaction of pupils, equal size. NOSE: Clear with pink turbinates. THROAT: No erythema or exudates. NECK: No masses, no JVD. CHEST: No chest wall deformity. LUNGS: Equal air entry with bibasilar crackles. CVS: S1 and S2 normal with no audible murmur, regular rhythm. ABDOMEN: No hepatosplenomegaly, normal bowel sounds, no guarding or rigidity. SPINE: No scoliosis or deformity SKIN: No rashes CENTRAL NERVOUS SYSTEM: No focal deficits, tone is normal in all 4 extremities. EXTREMITIES: There is no peripheral edema. No clubbing, no cyanosis. Pe ripheral pulses are intact. - Labs CBC & Chem 7: 03/21/21 10:19 03/21/21 10:19 Labs: Abnormal Lab Results - Last 24 Hours (Table) 03/23/21 03/23/21 03/24/21 Range/Units 17:19 20:20 06:21 POC Glucose (mg/dL) 162 H 130 H 103 H (75-99) mg/dL 03/24/21 Range/Units 12:08 POC Glucose (mg/dL) 107 H (75-99) mg/dL Assessment and Plan Assessment: 1 Acute hypoxemic respiratory failure, secondary to COVID 19 pneumonia. Outside the window for Remdesivir. 2 History of severe asthma, currently on daily prednisone, and a monoclonal antibody against interleukin-5(Fasenra). 3 History of hyperlipidemia. 4 Status post 1 dose of her coronavirus vaccine. Plan: The patient was seen and evaluated by Dr. Og Continue Baricitinib, Lovenox, vitamin supplements Changed to IV Solu-Medrol 60 mg every 6, DC Decadron Follow-up inflammatory markers, chest x-ray in a.m. Titrate the FiO2 as tolerated We'll continue to follow I, the cosigning physician, performed a history & physical examination of the patient. Lungs sounds with crackles in the bilateral bases. Maintaining O2 saturations in the 90s alternating BiPAP 12/5 at 70% FiO2 alternating with 15 L high flow nasal cannula. I discussed the assessment and plan of care with my nurse practitioner, Moriah Anna. I attest to the above note as dictated by her.
--- NOTE | 2021-03-24 15:36 | P.PN ---
Subjective 55-year-old female, with history of hyperlipidemia, transferred to our facility from [facility]. The patient became with a respiratory illness on March 12 and tested positive for coronavirus on March 18. She was there for a couple days, and apparently, because of worsening oxygenation and tolerance of the AIRVO device, she was transferred down for additional evaluation. The patient complains of shortness of breath, cough, fever, and just generally not feeling well. The patient had poor oral intake, as well as muscle aches and joint aches. She received the first of 2 of her buckner virus vaccines. Her was not vaccinated and apparently gave the illness to her. He came to the emergency room, at [place], and received monoclonal antibody. Currently, she is on BiPAP with settings of 12/5 and 70%. Chest x-ray shows diffuse bilateral infiltrates. She does have a previous history of severe asthma, for which she is on daily prednisone 5 mg, as well as Singulair, Breo, and Fasenra, which is a monoclonal antibody against interleukin-5. In addition, she has a history of hyperlipidemia. White count 12.5, hemoglobin 13.2, hematocrit 40.2, platelet count 512,000. D-dimer is 0.36. Sodium potassium chloride CO2 all normal. Anion gap normal. BUN and creatinine were 19 and 0.48. AST 53, LDH 1082, and C-reactive protein is 5. 03/23/2021 The patient is seen and evaluated in room at bedside; currently remains on BiPAP, with settings of IPAP 12, EPAP 5, and 70% FiO2. The patient is receiving appropriate medications including Symbicort, albuterol, Decadron, vitamins, Lovenox, and Bariticinib. When asked, the patient states that she is feeling a bit better. Labs today include a sugar of 110, and a d-dimer of 1.45. LDH is 1985, and C-reactive protein is 5.8. Chest x-ray from today is compared to a chest x-ray done on March 21, does show improvement. 03/24/2021 Patient is a pleasant 55 years old male who presents with respiratory distress and hypoxia secondary to bilateral: Pneumonia he is been followed closely by pulmonary team, currently he is receiving dexamethasone twitches/today to Solu- Medrol 60 mg. Also his receiving Baricitinib till 04/04. He is also covered with vitamin C, D and zinc. On Singulair. Today he was sitting in chair able to talk with some dyspnea. He denies chest p ain or diarrhea. Tachypneic with a breathing rate 18-26. Requirements stable needed and BiPAP and at 15 L via high flow nasal cannula with FiO2 of 70%. Rest of Vitas looks stable. Repeat chest x-ray and inflammatory markers and BMP in the morning All his questions were answered Objective - Vital Signs Vital signs: Vital Signs Temp 98.0 F 03/24/21 12:00 Pulse 80 03/24/21 12:00 Resp 26 H 03/24/21 12:00 BP 99/55 03/24/21 12:00 Pulse Ox 88 L 03/24/21 12:00 Intake & Output 03/23/21 03/24/21 03/24/21 18:59 06:59 18:59 Intake Total 2019 20 890 Balance 2019 890 Weight 105 kg Intake: IV 20 20 10 Invasive Line 1 20 10 Invasive Line 2 10 10 Oral 1999 880 Other: # Voids 2 3 - Exam GENERAL: The patient is alert and oriented x3, not in any acute distress. Well developed, well nourished. HEENT: Pupils are round and equally reacting to light. EOMI. No scleral icterus. No conjunctival pallor. Normocephalic, atraumatic. No pharyngeal erythema. No thyromegaly. CARDIOVASCULAR: S1 and S2 present. No murmurs, rubs, or gallops. -PULMONARY: Chest is clear to auscultation, no wheezing. bilateral crepitation. tachypneic ABDOMEN: Soft, nontender, nondistended, normoactive bowel sounds. No palpable organomegaly. MUSCULOSKELETAL: No joint swelling or deformity. EXTREMITIES: No cyanosis, clubbing, or pedal edema. NEUROLOGICAL: Gross neurological examination did not reveal any focal deficits. SKIN: No rashes. no petechiae. - Labs CBC & Chem 7: 03/21/21 10:19 03/21/21 10:19 Labs: Abnormal Lab Results - Last 24 Hours (Table) 03/23/21 03/23/21 03/24/21 Range/Units 17:19 20:20 06: POC Glucose (mg/dL) 162 H 130 H 103 H (75-99) mg/dL 03/24/21 Range/Units 12:08 POC Glucose (mg/dL) 107 H (75-99) mg/dL Assessment and Plan Assessment: Assessment and Plan 1. Acute hypoxemic respiratory failure; patient is currently on BiPAP, with FiO2 of 70% and saturating in 90s percent 2. COVID-19 pneumonia Patient has been evaluated by pulmonary service and is beyond the seven-day window for REM. the patient's place and an albuterol inhaler, Symbicort, 160/4.5, 2 puffs twice a day, vitamin C, vitamin D3, and zinc, as well as Singulair, Solu-Medrol 60 mg, and Lovenox 40 mg subcu daily. 3. History of severe asthma; patient is currently on prednisone 5 mg daily and monoclonal anti-body against interleukin-5; Singulair 10 mg daily 4. Hyperlipidemia; Zocor 20 mg daily at bedtime 5. Anxiety/depression; remains on BuSpar 5 mg daily and Effexor 150 mg daily DVT prophylaxis; subcu Lovenox CODE STATUS; DO NOT RESUSCITATE
[2021-03-24 16:55] LABS: Glucose,Whole Blood 168 mg/dL (75-99)
[2021-03-24 20:39] LABS: Glucose,Whole Blood 217 mg/dL (75-99)
[2021-03-24] MEDS ORDERED: INSULIN ASPART (NovoLOG) 100 UNIT/ML VIAL SQ ONE (21:20)
[2021-03-24] MEDS: MONTELUKAST 10 MG TAB PO SCH (21:30)
[2021-03-25 05:56] LABS: Glucose,Whole Blood 137 mg/dL (75-99)
[2021-03-25] MEDS: methylPREDNISolone SOD SUCCI 125 MG/2 ML VIAL IV SCH ×4 (06:37→23:30)
[2021-03-25] MEDS: INSULIN ASPART (NovoLOG) 100 UNIT/ML VIAL SQ SCH ×4 (06:37→20:28)
[2021-03-25] MEDS: ALBUTEROL HFA INHALER INHALATION SCH ×4 (08:16→20:52)
[2021-03-25] MEDS: SYMBICORT 160-4.5 MCG INHALER INHALATION SCH ×2 (08:16→20:52)
[2021-03-25 08:55] LABS: African American GFR (CKD) >90 (>60 ml/min/1.73 sqM); Anion Gap 7 mmol/L; Blood Urea Nitrogen 24 mg/dL (7-17); C Reactive Protein 3.7 mg/dL (<1.0); Calcium 9.2 mg/dL (8.4-10.2); Carbon Dioxide 28 mmol/L (22-30); Chloride 98 mmol/L (98-107); Glucose 139 mg/dL (74-99); LDH 1038 U/L (313-618); Non-African American GFR(CKD) >90 (>60 ml/min/1.73 sqM); Potassium 5.9 mmol/L (3.5-5.1); Sodium 133 mmol/L (137-145)
[2021-03-25] MEDS: VENLAFAXINE HCL ER 150 MG CAP PO SCH (08:59)
[2021-03-25] MEDS: ATORVASTATIN 10 MG TAB PO SCH (08:59)
[2021-03-25] MEDS: CHOLECALCIFEROL 10 MCG (400 IU) TABLET PO SCH (08:59)
[2021-03-25] MEDS: ZINC SULFATE 220 MG CAP PO SCH (08:59)
[2021-03-25] MEDS: busPIRone HCl 10 MG TAB PO SCH ×3 (08:59→20:28)
[2021-03-25] MEDS: ASCORBIC ACID 500 MG TAB PO SCH ×2 (08:59→20:28)
[2021-03-25] MEDS: ENOXAPARIN 40 MG/0.4 ML SYRINGE SQ SCH (09:00)
[2021-03-25] MEDS: PANTOPRAZOLE 40 MG TABLET PO SCH (09:00)
[2021-03-25] MEDS: CYCLOBENZAPRINE 10 MG TAB PO SCH ×2 (09:01→20:28)
--- NOTE | 2021-03-25 10:15 | XR ---
EXAMINATION TYPE: XR chest 1V portable DATE OF EXAM: 03/25/2021 COMPARISON: 03/23/2021 INDICATION: Covid TECHNIQUE: Single frontal view of the chest is obtained. FINDINGS: The heart size is enlarged. The pulmonary vasculature is prominent. Diffuse increased lung markings are present. Peripheral infiltrates are noted more so on the right. F indings can be compatible with atypical pneumonia. IMPRESSION: 1. Findings which can be compatible with atypical pneumonia. 2. Cardiomegaly with prominent vascular markings.
[2021-03-25 11:40] LABS: Glucose,Whole Blood 134 mg/dL (75-99)
[2021-03-25] MEDS: BARICITINIB 2 MG TABLET PO SCH (12:19)
[2021-03-25 13:21] LABS: C Reactive Protein 3.3 mg/dL (<1.0)
--- NOTE | 2021-03-25 13:31 | P.PN ---
Subjective 55-year-old female, with history of hyperlipidemia, transferred to our facility from [facility]. The patient became with a respiratory illness on March 12 and tested positive for coronavirus on March 18. She was there for a couple days, and apparently, because of worsening oxygenation and tolerance of the AIRVO device, she was transferred down for additional evaluation. The patient complains of shortness of breath, cough, fever, and just generally not feeling well. The patient had poor oral intake, as well as muscle aches and joint aches. She received the first of 2 of her buckner virus vaccines. Her was not vaccinated and apparently gave the illness to her. He came to the emergency room, at [facility], and received monoclonal antibody. Currently, she is on BiPAP with settings of 12/5 and 70%. Chest x-ray shows diffuse bilateral infiltrates. She does have a previous history of severe asthma, for which she is on daily prednisone 5 mg, as well as Singulair, Breo, and Fasenra, which is a monoclonal antibody against interleukin-5. In addition, she has a history of hyperlipidemia. White count 12.5, hemoglobin 13.2, hematocrit 40.2, platelet count 512,000. D-dimer is 0.36. Sodium potassium chloride CO2 all normal. Anion gap normal. BUN and creatinine were 19 and 0.48. AST 53, LDH 1082, and C-reactive protein is 5. 03/23/2021 The patient is seen and evaluated in room at bedside; currently remains on BiPAP, with settings of IPAP 12, EPAP 5, and 70% FiO2. The patient is receiving appropriate medications including Symbicort, albuterol, Decadron, vitamins, Lovenox, and Bariticinib. When asked, the patient states that she is feeling a bit better. Labs today include a sugar of 110, and a d-dimer of 1.45. LDH is 1985, and C-reactive protein is 5.8. Chest x-ray from today is compared to a chest x-ray done on March 21, does show improvement. 03/24/2021 Patient is a pleasant 55 years old male who presents with respiratory distress and hypoxia secondary to bilateral: Pneumonia he is been followed closely by pulmonary team, currently he is receiving dexamethasone twitches/today to Solu- Medrol 60 mg. Also his receiving Baricitinib till 04/04. He is also covered with vitamin C, D and zinc. On Singulair. Today he was sitting in chair able to talk with some dyspnea. He denies chest p ain or diarrhea. Tachypneic with a breathing rate 18-26. Requirements stable needed and BiPAP and at 15 L via high flow nasal cannula with FiO2 of 70%. Rest of Vitas looks stable. Repeat chest x-ray and inflammatory markers and BMP in the morning All his questions were answered Patient is still dyspneic and cystoscopy on BiPAP, she was placed on 15 L oxygen via nasal cannula treat she desaturated to mid 80s.. She still here for bilateral: Pneumonia and chest x-ray today showing persistent atypical pneumonia with prominent vascular markings. However she is awake and talking a ppropriately. A d-dimer was elevated today at 3.2, her lactate dehydrogenase is slightly trending down to 1038, While C-reactive protein improved to 3.7. She is covered with Solu-Medrol 60 mg, Baricitinib. Multiple vitamins and Lovenox 40 mg per pulmonary team recommendation wh the patient closely Objective - Vital Signs Vital signs: Vital Signs Temp 98.0 F 03/25/21 12:00 Pulse 77 03/25/21 12:00 Resp 18 03/25/21 12:00 BP 112/77 03/25/21 12:00 Pulse Ox 95 03/25/21 12:00 Intake & Output 03/24/21 03/25/21 03/25/21 18:59 06:59 18:59 Intake Total 1620 10 Balance 1620 10 Weight 104.5 kg Intake: IV 20 10 Invasive Line 2 20 10 Oral 1600 Other: # Voids 1 - Exam GENERAL: The patient is alert and oriented x3, not in any acute distress. Well developed, well nourished. HEENT: Pupils are round and equally reacting to light. EOMI. No scleral icterus. No conjunctival pallor. Normocephalic, atraumatic. No pharyngeal erythema. No thyromegaly. CARDIOVASCULAR: S1 and S2 present. No murmurs, rubs, or gallops. -PULMONARY: Chest is clear to auscultation, no wheezing. bilateral crepitation. tachypneic ABDOMEN: Soft, nontender, nondistended, normoactive bowel sounds. No palpable organomegaly. MUSCULOSKELETAL: No joint swelling or deformity. EXTREMITIES: No cyanosis, clubbing, or pedal edema. NEUROLOGICAL: Gross neurological examination did not reveal any focal deficits. SKIN: No rashes. no petechiae. - Labs CBC & Chem 7: 03/21/21 10:19 03/25/21 07:51 Labs: Abnormal Lab Results - Last 24 Hours (Table) 03/24/21 03/24/21 03/25/21 Range/Units 16:51 20:36 05:54 D-Dimer (<0.60) mg/L FEU Sodium (137-145) mmol/L Potassium (3.5-5.1) mmol/L BUN (7-17) mg/dL Glucose (74-99) mg/dL POC Glucose (mg/dL) 168 H 217 H 137 H (75-99) mg/dL Lactate Dehydrogenase (313-618) U/L C-Reactive Protein (<1.0) mg/dL 03/25/21 03/25/21 03/25/21 Range/Units 07:51 07:51 11:39 D-Dimer 2.28 H (<0.60) mg/L FEU Sodium 133 L (137-145) mmol/L Potassium 5.9 H (3.5-5.1) mmol/L BUN 24 H (7-17) mg/dL Glucose 139 H (74-99) mg/dL POC Glucose (mg/dL) 134 H (75-99) mg/dL Lactate Dehydrogenase 1038 H (313-618) U/L C-Reactive Protein 3.7 H (<1.0) mg/dL 03/25/21 Range/Units 12:17 D-Dimer 3.26 H (<0.60) mg/L FEU Sodium (137-145) mmol/L Potassium (3.5-5.1) mmol/L BUN (7-17) mg/dL Glucose (74-99) mg/dL POC Glucose (mg/dL) (75-99) mg/dL Lactate Dehydrogenase (313-618) U/L C-Reactive Protein (<1.0) mg/dL Assessment and Plan Assessment: Assessment and Plan 1. Acute hypoxemic respiratory failure; patient is currently on BiPAP, with FiO2 of 70% and saturating in 90s percent 2. COVID-19 pneumonia Patient has been evaluated by pulmonary service and is beyond the seven-day window for REM. the patient's place and an albuterol inhaler, Symbicort, 160/4 .5, 2 puffs twice a day, vitamin C, vitamin D3, and zinc, as well as Singulair, Solu-Medrol 60 mg, and Lovenox 40 mg subcu daily. 3. History of severe asthma; patient is currently on prednisone 5 mg daily and monoclonal anti-body against interleukin-5; Singulair 10 mg daily 4. Hyperlipidemia; Zocor 20 mg daily at bedtime 5. Anxiety/depression; remains on BuSpar 5 mg daily and Effexor 150 mg daily DVT prophylaxis; subcu Lovenox CODE STATUS; DO NOT RESUSCITATE
[2021-03-25 16:58] LABS: Glucose,Whole Blood 199 mg/dL (75-99)
--- NOTE | 2021-03-25 17:55 | P.PN ---
Subjective Progress Note Date: 03/25/21 Principal diagnosis: Acute COVID-19 pneumonia On 03/25/2021 patient is seen in follow-up on selective care unit, she sits up in bed, she remains on BiPAP support, with FiO2 of 70%, she is awake and alert, his breathing is improving, her pulse ox is 90-95%, she is breathing comf ortably, she is agreeable to a trial on high flow nasal cannula, afebrile, vital signs have been stable overnight, she continues on high-dose IV steroids with Solu-Medrol 60 mg every 6 hours, she is on Symbicort, she is on multivitamins, and she is on Bariticinib for severe hypoxic rest or a failure related to COVID- 19 pneumonia. Her chest x-ray today shows prominent pulmonary markings, cardiomegaly. Today's labs have been reviewed, her LDH is up to 1201, and CRP is 3.3, relatively stable compared to yesterday, d-dimer 3.26. Lovenox this 40 mg daily. No complaints of chest discomfort. Objective - Vital Signs Vital signs: Vital Signs Temp 98.3 F 03/25/21 16:00 Pulse 74 03/25/21 16:00 Resp 20 03/25/21 16:00 BP 112/64 03/25/21 16:00 Pulse Ox 95 03/25/21 16:33 Intake & Output 03/24/21 03/25/21 03/25/21 18:59 06:59 18:59 Intake Total 1620 10 520 Balance 1620 10 520 Weight 104.5 kg Intake: IV 20 10 Invasive Line 2 20 10 Oral 1600 520 Other: # Voids 1 - Exam GENERAL EXAM: Alert, very pleasant, obese 65-year-old white female, on BiPAP support with FiO2 of 30%, comfortable in no apparent distress. HEAD: Normocephalic/atraumatic. EYES: Normal reaction of pupils, equal size. Conjunctiva pink, sclera white. NOSE: Clear with pink turbinates. THROAT: No erythema or exudates. NECK: No masses, no JVD, no thyroid enlargement, no adenopathy. CHEST: No chest wall deformity. Symmetrical expansion. LUNGS: Equal air entry with bilateral crackles CVS: Regular rate and rhythm, normal S1 and S2, no gallops, no murmurs, no rubs ABDOMEN: Soft, nontender. No hepatosplenomegaly, normal bowel sounds, no guarding or rigidity. EXTREMITIES: No clubbing, no edema, no cyanosis, 2+ pulses and upper and lower extremities. MUSCULOSKELETAL: Muscle strength and tone normal. SPINE: No scoliosis or deformity SKIN: No rashes CENTRAL NERVOUS SYSTEM: Alert and oriented -3. No focal deficits, tone is normal in all 4 extremities. PSYCHIATRIC: Alert and oriented -3. Appropriate affect. Intact judgment and insight. - Labs CBC & Chem 7: 03/21/21 10:19 03/25/21 07:51 Labs: Abnormal Lab Results - Last 24 Hours (Table) 03/24/21 03/25/21 03/25/21 Range/Units 20:36 05:54 07:51 D-Dimer 2.28 H (<0.60) mg/L FEU Sodium (137-145) mmol/L Potassium (3.5-5.1) mmol/L BUN (7-17) mg/dL Glucose (74-99) mg/dL POC Glucose (mg/dL) 217 H 137 H (75-99) mg/dL Lactate Dehydrogenase (313-618) U/L C-Reactive Protein (<1.0) mg/dL 03/25/21 03/25/21 03/25/21 Range/Units 07:51 11:39 12:17 D-Dimer 3.26 H (<0.60) mg/L FEU Sodium 133 L (137-145) mmol/L Potassium 5.9 H (3.5-5.1) mmol/L BUN 24 H (7-17) mg/dL Glucose 139 H (74-99) mg/dL POC Glucose (mg/dL) 134 H (75-99) mg/dL Lactate Dehydrogenase 1038 H (313-618) U/L C-Reactive Protein 3.7 H (<1.0) mg/dL 03/25/21 03/25/21 Range/Units 12:17 16:57 D-Dimer (<0.60) mg/L FEU Sodium (137-145) mmol/L Potassium (3.5-5.1) mmol/L BUN (7-17) mg/dL Glucose (74-99) mg/dL POC Glucose (mg/dL) 199 H (75-99) mg/dL Lactate Dehydrogenase 1201 H (313-618) U/L C-Reactive Protein 3.3 H (<1.0) mg/dL Assessment and Plan Plan: Assessment: #1. Acute hypoxic rest or a failure secondary to acute COVID-19 pneumonia, patient was outside the window for Remdesivir, she was started on Baricitinib on 03/22/2021 for severe hypoxic respiratory failure #2. History of severe persistent bronchial asthma, currently on a daily prednisone on an outpatient basis, and Fasenra #3. History of hyperlipidemia #4. Patient status post 1 dose of COVID 19 vaccine Plan: Continue current medical treatment Continue Lovenox Continue vitamins Continue steroids, Baricitinib Follow inflammatory markers, Torsten d-dimer, today's chest x-ray has been reviewed Trial the patient on high flow oxygen May be placed on BiPAP as needed I performed a history & physical examination of the patient and discussed their management with my nurse practitioner, aCrmen Gaines. I reviewed the nurse practitioner's note and agree with the documented findings and plan of care. Lung sounds are positive for diminished breath sounds throughout the lung alanis. The findings and the impression was discussed with the patient. I attest to the documentation by the nurse practitioner. Time with Patient: Less than 30
[2021-03-25 20:14] LABS: Glucose,Whole Blood 166 mg/dL (75-99)
[2021-03-25] MEDS: MONTELUKAST 10 MG TAB PO SCH (20:28)
--- NOTE | 2021-03-25 22:06 | US ---
EXAMINATION TYPE: US venous doppler duplex LE BI DATE OF EXAM: 03/25/2021 6:38 PM COMPARISON: NONE CLINICAL HISTORY: Elevated d-dimer, covid SIDE PERFORMED: Bilateral TECHNIQUE: The lower extremity deep venous system is examined utilizing real time linear array sonog sam with graded compression, doppler sonography and color-flow sonography. VESSELS IMAGED: Common Femoral Vein Deep Femoral Vein Greater Saphenous Vein * Femoral Vein Popliteal Vein Small Saphenous Vein * Proximal Calf Veins (* superficial vessels) Right Leg: Negative for DVT Left Leg: Negative for DVT IMPRESSION: No evidence of deep vein thrombosis in both legs.
[2021-03-26 06:01] LABS: Glucose,Whole Blood 152 mg/dL (75-99)
[2021-03-26] MEDS: INSULIN ASPART (NovoLOG) 100 UNIT/ML VIAL SQ SCH ×4 (06:33→20:43)
[2021-03-26] MEDS: methylPREDNISolone SOD SUCCI 125 MG/2 ML VIAL IV SCH ×4 (06:33→23:46)
[2021-03-26] MEDS: SYMBICORT 160-4.5 MCG INHALER INHALATION SCH ×2 (08:36→20:00)
[2021-03-26] MEDS: ALBUTEROL HFA INHALER INHALATION SCH ×4 (08:36→20:00)
[2021-03-26] MEDS: ASCORBIC ACID 500 MG TAB PO SCH ×2 (09:19→20:43)
[2021-03-26] MEDS: ZINC SULFATE 220 MG CAP PO SCH (09:19)
[2021-03-26] MEDS: ENOXAPARIN 40 MG/0.4 ML SYRINGE SQ SCH (09:19)
[2021-03-26] MEDS: PANTOPRAZOLE 40 MG TABLET PO SCH (09:19)
[2021-03-26] MEDS: ATORVASTATIN 10 MG TAB PO SCH (09:19)
[2021-03-26] MEDS: CYCLOBENZAPRINE 10 MG TAB PO SCH ×2 (09:20→20:43)
[2021-03-26] MEDS: CHOLECALCIFEROL 10 MCG (400 IU) TABLET PO SCH (09:20)
[2021-03-26] MEDS: busPIRone HCl 10 MG TAB PO SCH ×3 (09:20→20:43)
[2021-03-26] MEDS: VENLAFAXINE HCL ER 150 MG CAP PO SCH (09:20)
--- NOTE | 2021-03-26 11:58 | P.PN ---
Subjective Progress Note Date: 03/26/21 Principal diagnosis: Acute COVID-19 pneumonia On 03/25/2021 patient is seen in follow-up on selective care unit, she sits up in bed, she remains on BiPAP support, with FiO2 of 70%, she is awake and alert, his breathing is improving, her pulse ox is 90-95%, she is breathing comf ortably, she is agreeable to a trial on high flow nasal cannula, afebrile, vital signs have been stable overnight, she continues on high-dose IV steroids with Solu-Medrol 60 mg every 6 hours, she is on Symbicort, she is on multivitamins, and she is on Bariticinib for severe hypoxic rest or a failure related to COVID- 19 pneumonia. Her chest x-ray today shows prominent pulmonary markings, cardiomegaly. Today's labs have been reviewed, her LDH is up to 1201, and CRP is 3.3, relatively stable compared to yesterday, d-dimer 3.26. Lovenox this 40 mg daily. No complaints of chest discomfort. On today's evaluation on 03/26/2021 patient seen in follow-up on selective care unit. She has been alternating between high flow oxygen at 15 L and BiPAP with pressures of 12 and 5 and FiO2 is currently down to 60%, she states she is comfortable on the BiPAP support in between meals and high flow nasal cannula trials, she is breathing fairly comfortably, she is sitting up on the edge of the bed, she is awake and alert, responding appropriately, no complaint of chest discomfort, no new chest x-ray today, especially labs have been reviewed, and potassium is 5.9, today's labs are pending for today, d-dimer yesterday was 3.26, lower extremity Dopplers were negative for DVT. Patient remains on pro phylactic dose Lovenox Objective - Vital Signs Vital signs: Vital Signs Temp 97.6 F 03/26/21 08:00 Pulse 73 03/26/21 08:00 Resp 20 03/26/21 08:00 BP 105/54 03/26/21 08:00 Pulse Ox 95 03/26/21 08:36 Intake & Output 03/25/21 03/26/21 03/26/21 18:59 06:59 18:59 Intake Total 760 240 Output Total 400 Balance 360 240 Weight 104 kg Intake: Oral 760 240 Output: Urine 400 Other: # Voids 1 - Exam GENERAL EXAM: Alert, very pleasant, obese 65-year-old white female, on BiPAP support with FiO2 of 60%, comfortable in no apparent distress. HEAD: Normocephalic/atraumatic. EYES: Normal reaction of pupils, equal size. Conjunctiva pink, sclera white. NOSE: Clear with pink turbinates. THROAT: No erythema or exudates. NECK: No masses, no JVD, no thyroid enlargement, no adenopathy. CHEST: No chest wall deformity. Symmetrical expansion. LUNGS: Equal air entry with bilateral crackles CVS: Regular rate and rhythm, normal S1 and S2, no gallops, no murmurs, no rubs ABDOMEN: Soft, nontender. No hepatosplenomegaly, normal bowel sounds, no guarding or rigidity. EXTREMITIES: No clubbing, no edema, no cyanosis, 2+ pulses and upper and lower extremities. MUSCULOSKELETAL: Muscle strength and tone normal. SPINE: No scoliosis or deformity SKIN: No rashes CENTRAL NERVOUS SYSTEM: Alert and oriented -3. No focal deficits, tone is no rmal in all 4 extremities. PSYCHIATRIC: Alert and oriented -3. Appropriate affect. Intact judgment and insight. - Labs CBC & Chem 7: 03/21/21 10:19 03/25/21 07:51 Labs: Abnormal Lab Results - Last 24 Hours (Table) 03/25/21 03/25/21 03/25/21 Range/Units 12:17 12:17 16:57 D-Dimer 3.26 H (<0.60) mg/L FEU POC Glucose (mg/dL) 199 H (75-99) mg/dL Lactate Dehydrogenase 1201 H (313-618) U/L C-Reactive Protein 3.3 H (<1.0) mg/dL 03/25/21 03/26/21 Range/Units 20:12 06:00 D-Dimer (<0.60) mg/L FEU POC Glucose (mg/dL) 166 H 152 H (75-99) mg/dL Lactate Dehydrogenase (313-618) U/L C-Reactive Protein (<1.0) mg/dL Assessment and Plan Plan: Assessment: #1. Acute hypoxic rest or a failure secondary to acute COVID-19 pneumonia, patient was outside the window for Remdesivir, she was started on Baricitinib on 03/22/2021 for severe hypoxic respiratory failure #2. History of severe persistent bronchial asthma, currently on a daily prednisone on an outpatient basis, and Fasenra #3. History of hyperlipidemia #4. Patient status post 1 dose of COVID 19 vaccine Plan: Continue weaning FiO2 to keep O2 saturation is at or above 88-90% current medical treatment Continue Lovenox Continue vitamins Continue steroids, Baricitinib Follow inflammatory markers, d-dimer Alternate the patient on high flow oxygen and bipap I performed a history & physical examination of the patient and discussed their management with my nurse practitioner, Carmen Gaines. I reviewed the nurse practitioner's note and agree with the documented findings and plan of care. Lung sounds are positive for diminished breath sounds throughout the lung alanis. The findings and the impression was discussed with the patient. I attest to the documentation by the nurse practitioner. Time with Patient: Less than 30
[2021-03-26 12:06] LABS: Glucose,Whole Blood 245 mg/dL (75-99)
--- NOTE | 2021-03-26 12:20 | P.PN ---
Subjective 55-year-old female, with history of hyperlipidemia, transferred to our facility from [facility]. The patient became with a respiratory illness on March 12 and tested positive for coronavirus on March 18. She was there for a couple days, and apparently, because of worsening oxygenation and tolerance of the AIRVO device, she was transferred down for additional evaluation. The patient complains of shortness of breath, cough, fever, and just generally not feeling well. The patient had poor oral intake, as well as muscle aches and joint aches. She received the first of 2 of her buckner virus vaccines. Her was not vaccinated and apparently gave the illness to her. He came to the emergency room, at [facility], and received monoclonal antibody. Currently, she is on BiPAP with settings of 12/5 and 70%. Chest x-ray shows diffuse bilateral infiltrates. She does have a previous history of severe asthma, for which she is on daily prednisone 5 mg, as well as Singulair, Breo, and Fasenra, which is a monoclonal antibody against interleukin-5. In addition, she has a history of hyperlipidemia. White count 12.5, hemoglobin 13.2, hematocrit 40.2, platelet count 512,000. D-dimer is 0.36. Sodium potassium chloride CO2 all normal. Anion gap normal. BUN and creatinine were 19 and 0.48. AST 53, LDH 1082, and C-reactive protein is 5. 03/23/2021 The patient is seen and evaluated in room at bedside; currently remains on BiPAP, with settings of IPAP 12, EPAP 5, and 70% FiO2. The patient is receiving appropriate medications including Symbicort, albuterol, Decadron, vitamins, Lovenox, and Bariticinib. When asked, the patient states that she is feeling a bit better. Labs today include a sugar of 110, and a d-dimer of 1.45. LDH is 1985, and C-reactive protein is 5.8. Chest x-ray from today is compared to a chest x-ray done on March 21, does show improvement. 03/24/2021 Patient is a pleasant 55 years old male who presents with respiratory distress and hypoxia secondary to bilateral: Pneumonia he is been followed closely by pulmonary team, currently he is receiving dexamethasone twitches/today to Solu- Medrol 60 mg. Also his receiving Baricitinib till 04/04. He is also covered with vitamin C, D and zinc. On Singulair. Today he was sitting in chair able to talk with some dyspnea. He denies chest p ain or diarrhea. Tachypneic with a breathing rate 18-26. Requirements stable needed and BiPAP and at 15 L via high flow nasal cannula with FiO2 of 70%. Rest of Vitas looks stable. Repeat chest x-ray and inflammatory markers and BMP in the morning All his questions were answered 03/25/2021 Patient is still dyspneic and cystoscopy on BiPAP, she was placed on 15 L oxygen via nasal cannula treat she desaturated to mid 80s.. She still here for bilateral: Pneumonia and chest x-ray today showing persistent atypical pneumonia with prominent vascular markings. However she is awake and talking joe ropriately. A d-dimer was elevated today at 3.2, her lactate dehydrogenase is slightly trending down to 1038, While C-reactive protein improved to 3.7. She is covered with Solu-Medrol 60 mg, Baricitinib. Multiple vitamins and Lovenox 40 mg per pulmonary team recommendation wh the patient closely 03/26/2021 Patient clinically the same still on 15 L oxygen via nasal cannula, currently tachypneic or dyspneic although she has some subjective feeling of better. No labs from today and her glucose control Ultrasound of the leg is negative for DVT Patient is continued with same treatment Solu-Medrol 60 mg, Baricitinib. Multiple vitamins and Lovenox 40 mg Objective - Vital Signs Vital signs: Vital Signs Temp 97.6 F 03/26/21 08:00 Pulse 73 03/26/21 08:00 Resp 20 03/26/21 08:00 BP 105/54 03/26/21 08:00 Pulse Ox 95 03/26/21 08:36 Intake & Output 03/25/21 03/26/21 03/26/21 18:59 06:59 18:59 Intake Total 760 240 Output Total 400 Balance 360 240 Weight 104 kg Intake: Oral 760 240 Output: Urine 400 Other: # Voids 1 - Exam GENERAL: The patient is alert and oriented x3, not in any acute distress. Well developed, well nourished. HEENT: Pupils are round and equally reacting to light. EOMI. No scleral icterus. No conjunctival pallor. Normocephalic, atraumatic. No pharyngeal erythema. No thyromegaly. CARDIOVASCULAR: S1 and S2 present. No murmurs, rubs, or gallops. -PULMONARY: Chest is clear to auscultation, no wheezing. bilateral crepitation. tachypneic ABDOMEN: Soft, nontender, nondistended, normoactive bowel sounds. No palpable organomegaly. MUSCULOSKELETAL: No joint swelling or deformity. EXTREMITIES: No cyanosis, clubbing, or pedal edema. NEUROLOGICAL: Gross neurological examination did not reveal any focal deficits. SKIN: No rashes. no petechiae. - Labs CBC & Chem 7: 03/21/21 10:19 03/25/21 07:51 Labs: Abnormal Lab Results - Last 24 Hours (Table) 03/25/21 03/25/21 03/25/21 Range/Units 12:17 12:17 16:57 D-Dimer 3.26 H (<0.60) mg/L FEU POC Glucose (mg/dL) 199 H (75-99) mg/dL Lactate Dehydrogenase 1201 H (313-618) U/L C-Reactive Protein 3.3 H (<1.0) mg/dL 03/25/21 03/26/21 03/26/21 Range/Units 20:12 06:00 12:03 D-Dimer (<0.60) mg/L FEU POC Glucose (mg/dL) 166 H 152 H 245 H (75-99) mg/dL Lactate Dehydrogenase (313-618) U/L C-Reactive Protein (<1.0) mg/dL Assessment and Plan Assessment: Assessment and Plan 1. Acute hypoxemic respiratory failure; patient is currently on BiPAP, with FiO2 of 70% and saturating in 90s percent 2. COVID-19 pneumonia Patient has been evaluated by pulmonary service and is beyond the seven-day window for REM. the patient's place and an albuterol inhaler, Symbicort, 160/4.5, 2 puffs twice a day, vitamin C, vitamin D3, and zinc, as well as Singulair, Solu-Medrol 60 mg, and Lovenox 40 mg subcu daily. 3. History of severe asthma; patient is currently on prednisone 5 mg daily and monoclonal anti-body against interleukin-5; Singulair 10 mg daily 4. Hyperlipidemia; Zocor 20 mg daily at bedtime 5. Anxiety/depression; remains on BuSpar 5 mg daily and Effexor 150 mg daily DVT prophylaxis; subcu Lovenox CODE STATUS; DO NOT RESUSCITATE
[2021-03-26] MEDS: BARICITINIB 2 MG TABLET PO SCH (12:47)
[2021-03-26 14:17] LABS: African American GFR (CKD) >90 (>60 ml/min/1.73 sqM); Anion Gap 7 mmol/L; Blood Urea Nitrogen 28 mg/dL (7-17); Calcium 9.4 mg/dL (8.4-10.2); Carbon Dioxide 28 mmol/L (22-30); Chloride 97 mmol/L (98-107); Glucose 259 mg/dL (74-99); Non-African American GFR(CKD) >90 (>60 ml/min/1.73 sqM); Potassium 5.4 mmol/L (3.5-5.1); Sodium 132 mmol/L (137-145)
[2021-03-26 17:20] LABS: Glucose,Whole Blood 244 mg/dL (75-99)
[2021-03-26] MEDS: MONTELUKAST 10 MG TAB PO SCH (20:43)
[2021-03-26 20:56] LABS: Glucose,Whole Blood 167 mg/dL (75-99)
[2021-03-27] MEDS: methylPREDNISolone SOD SUCCI 125 MG/2 ML VIAL IV SCH ×4 (06:07→23:39)
[2021-03-27] MEDS: INSULIN ASPART (NovoLOG) 100 UNIT/ML VIAL SQ SCH ×4 (06:09→20:24)
[2021-03-27 06:15] LABS: Glucose,Whole Blood 155 mg/dL (75-99)
[2021-03-27] MEDS: ALBUTEROL HFA INHALER INHALATION SCH ×4 (08:05→21:58)
[2021-03-27] MEDS: SYMBICORT 160-4.5 MCG INHALER INHALATION SCH ×2 (08:05→21:58)
[2021-03-27 08:40] LABS: HCT 41.3 % (34.0-46.0); MCH 31.1 pg (25.0-35.0); MCHC 33.9 g/dL (31.0-37.0); MCV 91.7 fL (80.0-100.0); Mean Platelet Volume 7.2; Platelet Count 774 k/uL (150-450); RDW 13.1 % (11.5-15.5); WBC 9.7 k/uL (3.8-10.6)
[2021-03-27 08:51] LABS: African American GFR (CKD) >90 (>60 ml/min/1.73 sqM); Anion Gap 8 mmol/L; Blood Urea Nitrogen 25 mg/dL (7-17); Calcium 9.6 mg/dL (8.4-10.2); Carbon Dioxide 29 mmol/L (22-30); Chloride 98 mmol/L (98-107); Glucose 208 mg/dL (74-99); Non-African American GFR(CKD) >90 (>60 ml/min/1.73 sqM); Potassium 5.3 mmol/L (3.5-5.1); Sodium 135 mmol/L (137-145)
[2021-03-27] MEDS: ATORVASTATIN 10 MG TAB PO SCH (09:45)
[2021-03-27] MEDS: CHOLECALCIFEROL 10 MCG (400 IU) TABLET PO SCH (09:45)
[2021-03-27] MEDS: ASCORBIC ACID 500 MG TAB PO SCH ×2 (09:45→20:24)
[2021-03-27] MEDS: ENOXAPARIN 40 MG/0.4 ML SYRINGE SQ SCH (09:45)
[2021-03-27] MEDS: VENLAFAXINE HCL ER 150 MG CAP PO SCH (09:45)
[2021-03-27] MEDS: ZINC SULFATE 220 MG CAP PO SCH (09:45)
[2021-03-27] MEDS: busPIRone HCl 10 MG TAB PO SCH ×3 (09:45→20:24)
[2021-03-27] MEDS: PANTOPRAZOLE 40 MG TABLET PO SCH (09:45)
[2021-03-27] MEDS: CYCLOBENZAPRINE 10 MG TAB PO SCH ×2 (09:47→20:24)
[2021-03-27 11:48] LABS: Glucose,Whole Blood 193 mg/dL (75-99)
--- NOTE | 2021-03-27 12:28 | P.PN ---
Subjective 55-year-old female, with history of hyperlipidemia, transferred to our facility from [facility]. The patient became with a respiratory illness on March 12 and tested positive for coronavirus on March 18. She was there for a couple days, and apparently, because of worsening oxygenation and tolerance of the AIRVO device, she was transferred down for additional evaluation. The patient complains of shortness of breath, cough, fever, and just generally not feeling well. The patient had poor oral intake, as well as muscle aches and joint aches. She received the first of 2 of her buckner virus vaccines. Her was not vaccinated and apparently gave the illness to her. He came to the emergency room, at [place], and received monoclonal antibody. Currently, she is on BiPAP with settings of 12/5 and 70%. Chest x-ray shows diffuse bilateral infiltrates. She does have a previous history of severe asthma, for which she is on daily prednisone 5 mg, as well as Singulair, Breo, and Fasenra, which is a monoclonal antibody against interleukin-5. In addition, she has a history of hyperlipidemia. White count 12.5, hemoglobin 13.2, hematocrit 40.2, platelet count 512,000. D-dimer is 0.36. Sodium potassium chloride CO2 all normal. Anion gap normal. BUN and creatinine were 19 and 0.48. AST 53, LDH 1082, and C-reactive protein is 5. 03/23/2021 The patient is seen and evaluated in room at bedside; currently remains on BiPAP, with settings of IPAP 12, EPAP 5, and 70% FiO2. The patient is receiving appropriate medications including Symbicort, albuterol, Decadron, vitamins, Lovenox, and Bariticinib. When asked, the patient states that she is feeling a bit better. Labs today include a sugar of 110, and a d-dimer of 1.45. LDH is 1985, and C-reactive protein is 5.8. Chest x-ray from today is compared to a chest x-ray done on March 21, does show improvement. 03/24/2021 Patient is a pleasant 55 years old male who presents with respiratory distress and hypoxia secondary to bilateral: Pneumonia he is been followed closely by pulmonary team, currently he is receiving dexamethasone twitches/today to Solu- Medrol 60 mg. Also his receiving Baricitinib till 04/04. He is also covered with vitamin C, D and zinc. On Singulair. Today he was sitting in chair able to talk with some dyspnea. He denies chest p ain or diarrhea. Tachypneic with a breathing rate 18-26. Requirements stable needed and BiPAP and at 15 L via high flow nasal cannula with FiO2 of 70%. Rest of Vitas looks stable. Repeat chest x-ray and inflammatory markers and BMP in the morning All his questions were answered 03/25/2021 Patient is still dyspneic and cystoscopy on BiPAP, she was placed on 15 L oxygen via nasal cannula treat she desaturated to mid 80s.. She still here for bilateral: Pneumonia and chest x-ray today showing persistent atypical pneumonia with prominent vascular markings. However she is awake and talking joe ropriately. A d-dimer was elevated today at 3.2, her lactate dehydrogenase is slightly trending down to 1038, While C-reactive protein improved to 3.7. She is covered with Solu-Medrol 60 mg, Baricitinib. Multiple vitamins and Lovenox 40 mg per pulmonary team recommendation wh the patient closely 03/26/2021 Patient clinically the same still on 15 L oxygen via nasal cannula, currently tachypneic or dyspneic although she has some subjective feeling of better. No labs from today and her glucose control Ultrasound of the leg is negative for DVT Patient is continued with same treatment Solu-Medrol 60 mg, Baricitinib. Multiple vitamins and Lovenox 40 mg 03/27/2021 Patient is with bilateral: Pneumonia and hypoxia. Is been clinically stable looks the same over the last 3-4 days, her breathing is less tachypneic today at 22, however she is a still on 15 L oxygen via nasal cannula, afebrile. Labs from today including CBC and BMP are stable. She remains on the same treatment of Solu-Medrol 60 mg, Baricitinib. Multiple vitamins and Lovenox 40 mg Objective - Vital Signs Vital signs: Vital Signs Temp 97.5 F L 03/27/21 08:00 Pulse 84 03/27/21 08:00 Resp 22 03/27/21 08:00 BP 118/67 03/27/21 08:00 Pulse Ox 94 L 03/27/21 08:05 Intake & Output 03/26/21 03/27/21 03/27/21 18:59 06:59 18:59 Intake Total 1040 240 720 Output Total 150 Balance 890 240 720 Weight 105 kg Intake: Oral 1040 240 720 Output: Urine 150 Other: Voiding Method Toilet Toilet # Voids 1 1 - Exam GENERAL: The patient is alert and oriented x3, not in any acute distress. Well developed, well nourished. HEENT: Pupils are round and equally reacting to light. EOMI. No scleral icterus. No conjunctival pallor. Normocephalic, atraumatic. No pharyngeal erythema. No thyromegaly. CARDIOVASCULAR: S1 and S2 present. No murmurs, rubs, or gallops. -PULMONARY: Chest is clear to auscultation, no wheezing. bilateral crepitation. tachypneic ABDOMEN: Soft, nontender, nondistended, normoactive bowel sounds. No palpable organomegaly. MUSCULOSKELETAL: No joint swelling or deformity. EXTREMITIES: No cyanosis, clubbing, or pedal edema. NEUROLOGICAL: Gross neurological examination did not reveal any focal deficits. SKIN: No rashes. no petechiae. - Labs CBC & Chem 7: 03/27/21 08:15 03/27/21 08:15 Labs: Abnormal Lab Results - Last 24 Hours (Table) 03/26/21 03/26/21 03/26/21 Range/Units 13:30 17:00 20:41 Plt Count (150-450) k/uL Sodium 132 L (137-145) mmol/L Potassium 5.4 H (3.5-5.1) mmol/L Chloride 97 L (98-107) mmol/L BUN 28 H (7-17) mg/dL Glucose 259 H (74-99) mg/dL POC Glucose (mg/dL) 244 H 167 H (75-99) mg/dL 03/27/21 03/27/21 03/27/21 Range/Units 06:08 08:15 08:15 Plt Count 774 H (150-450) k/uL Sodium 135 L (137-145) mmol/L Potassium 5.3 H (3.5-5.1) mmol/L Chloride (98-107) mmol/L BUN 25 H (7-17) mg/dL Glucose 208 H (74-99) mg/dL POC Glucose (mg/dL) 155 H (75-99) mg/dL 03/27/21 Range/Units 11:47 Plt Count (150-450) k/uL Sodium (137-145) mmol/L Potassium (3.5-5.1) mmol/L Chloride (98-107) mmol/L BUN (7-17) mg/dL Glucose (74-99) mg/dL POC Glucose (mg/dL) 193 H (75-99) mg/dL Assessment and Plan Assessment: Assessment and Plan 1. Acute hypoxemic respiratory failure; patient is currently on BiPAP, with FiO2 of 70% and saturating in 90s percent 2. COVID-19 pneumonia Patient has been evaluated by pulmonary service and is beyond the seven-day window for REM. the patient's place and an albuterol inhaler, Symbicort, 160/4.5, 2 puffs twice a day, vitamin C, vitamin D3, and zinc, as well as Singulair, Solu-Medrol 60 mg, and Lovenox 40 mg subcu daily. 3. History of severe asthma; patient is currently on prednisone 5 mg daily and monoclonal anti-body against interleukin-5; Singulair 10 mg daily 4. Hyperlipidemia; Zocor 20 mg daily at bedtime 5. Anxiety/depression; remains on BuSpar 5 mg daily and Effexor 150 mg daily DVT prophylaxis; subcu Lovenox CODE STATUS; DO NOT RESUSCITATE
[2021-03-27] MEDS: BARICITINIB 2 MG TABLET PO SCH (12:41)
[2021-03-27 17:03] LABS: Glucose,Whole Blood 211 mg/dL (75-99)
--- NOTE | 2021-03-27 17:44 | P.PN ---
Subjective Progress Note Date: 03/27/21 Principal diagnosis: Acute COVID-19 pneumonia On 03/25/2021 patient is seen in follow-up on selective care unit, she sits up in bed, she remains on BiPAP support, with FiO2 of 70%, she is awake and alert, his breathing is improving, her pulse ox is 90-95%, she is breathing comf ortably, she is agreeable to a trial on high flow nasal cannula, afebrile, vital signs have been stable overnight, she continues on high-dose IV steroids with Solu-Medrol 60 mg every 6 hours, she is on Symbicort, she is on multivitamins, and she is on Bariticinib for severe hypoxic rest or a failure related to COVID- 19 pneumonia. Her chest x-ray today shows prominent pulmonary markings, cardiomegaly. Today's labs have been reviewed, her LDH is up to 1201, and CRP is 3.3, relatively stable compared to yesterday, d-dimer 3.26. Lovenox this 40 mg daily. No complaints of chest discomfort. On today's evaluation on 03/26/2021 patient seen in follow-up on selective care unit. She has been alternating between high flow oxygen at 15 L and BiPAP with pressures of 12 and 5 and FiO2 is currently down to 60%, she states she is comfortable on the BiPAP support in between meals and high flow nasal cannula trials, she is breathing fairly comfortably, she is sitting up on the edge of the bed, she is awake and alert, responding appropriately, no complaint of chest discomfort, no new chest x-ray today, especially labs have been reviewed, and potassium is 5.9, today's labs are pending for today, d-dimer yesterday was 3.26, lower extremity Dopplers were negative for DVT. Patient remains on pro phylactic dose Lovenox On 03/27/2021 patient seen in follow-up on selective care unit. Patient is off BiPAP support, and on high flow oxygen currently at 15 L, breathing comfortably, her pulse ox is 97%, however when attempted to drop the FiO2 down she does rapidly desaturates within a few minutes even at rest. For that reason her FiO2 was returned back to 15 L. No complaints of chest discomfort, does get short of breath with any exertion, occasional cough, no fever or chills, patient contin ues on baricitinib, IV Solu-Medrol, and Lovenox 40 mg. Today's labs have been reviewed. White count is 9.7, hemoglobin is 14, platelet, 774, sodium is 134, potassium is 5.3, Maricel 's were within normal limits, BUN is 25, creatinine 0.64. Objective - Vital Signs Vital signs: Vital Signs Temp 97.5 F L 03/27/21 08:00 Pulse 66 03/27/21 13:58 Resp 18 03/27/21 13:58 BP 118/61 03/27/21 12:00 Pulse Ox 97 03/27/21 12:00 Intake & Output 03/26/21 03/27/21 03/27/21 18:59 06:59 18:59 Intake Total 1040 240 840 Output Total 150 Balance 890 240 840 Weight 105 kg Intake: Oral 1040 240 840 Output: Urine 150 Other: Voiding Method Toilet Toilet # Voids 1 1 - Exam GENERAL EXAM: Alert, very pleasant, obese 65-year-old white female, on 15 L oxygen with a pulse ox of 97%, comfortable in no apparent distress. HEAD: Normocephalic/atraumatic. EYES: Normal reaction of pupils, equal size. Conjunctiva pink, sclera white. NOSE: Clear with pink turbinates. THROAT: No erythema or exudates. NECK: No masses, no JVD, no thyroid enlargement, no adenopathy. CHEST: No chest wall deformity. Symmetrical expansion. LUNGS: Equal air entry with bilateral crackles CVS: Regular rate and rhythm, normal S1 and S2, no gallops, no murmurs, no rubs ABDOMEN: Soft, nontender. No hepatosplenomegaly, normal bowel sounds, no guarding or rigidity. EXTREMITIES: No clubbing, no edema, no cyanosis, 2+ pulses and upper and lower extremities. MUSCULOSKELETAL: Muscle strength and tone normal. SPINE: No scoliosis or deformity SKIN: No rashes CENTRAL NERVOUS SYSTEM: Alert and oriented -3. No focal deficits, tone is normal in all 4 extremities. PSYCHIATRIC: Alert and oriented -3. Appropriate affect. Intact judgment and insight. - Labs CBC & Chem 7: 03/27/21 08:15 03/27/21 08:15 Labs: Abnormal Lab Results - Last 24 Hours (Table) 03/26/21 03/27/21 03/27/21 Range/Units 20:41 06:08 08:15 Plt Count (150-450) k/uL Sodium 135 L (137-145) mmol/L Potassium 5.3 H (3.5-5.1) mmol/L BUN 25 H (7-17) mg/dL Glucose 208 H (74-99) mg/dL POC Glucose (mg/dL) 167 H 155 H (75-99) mg/dL 03/27/21 03/27/21 03/27/21 Range/Units 08:15 11:47 17:02 Plt Count 774 H (150-450) k/uL Sodium (137-145) mmol/L Potassium (3.5-5.1) mmol/L BUN (7-17) mg/dL Glucose (74-99) mg/dL POC Glucose (mg/dL) 193 H 211 H (75-99) mg/dL Assessment and Plan Plan: Assessment: #1. Acute hypoxic rest or a failure secondary to acute COVID-19 pneumonia, patient was outside the window for Remdesivir, she was started on Baricitinib on 03/22/2021 for severe hypoxic respiratory failure #2. History of severe persistent bronchial asthma, currently on a daily prednis one on an outpatient basis, and Fasenra #3. History of hyperlipidemia #4. Patient status post 1 dose of COVID 19 vaccine Plan: Patient is off BiPAP support and high flow oxygen, tolerating it very well Currently on 15 L high flow maintaining stable O2 saturations Continue IV steroids, Continue Bariticinib Continue lovenox, vitamins Follow inflammatory markers, and d-dimer I performed a history & physical examination of the patient and discussed their management with my nurse practitioner, Carmen Gaines. I reviewed the nurse practitioner's note and agree with the documented findings and plan of care. Lung sounds are positive for diminished breath sounds throughout the lung alanis. The findings and the impression was discussed with the patient. I attest to the documentation by the nurse practitioner. Time with Patient: Less than 30
[2021-03-27 20:13] LABS: Glucose,Whole Blood 222 mg/dL (75-99)
[2021-03-27] MEDS: MONTELUKAST 10 MG TAB PO SCH (20:24)
[2021-03-28 05:59] LABS: Glucose,Whole Blood 144 mg/dL (75-99)
[2021-03-28] MEDS: methylPREDNISolone SOD SUCCI 125 MG/2 ML VIAL IV SCH ×4 (06:08→23:16)
[2021-03-28] MEDS: INSULIN ASPART (NovoLOG) 100 UNIT/ML VIAL SQ SCH ×4 (06:08→21:38)
[2021-03-28] MEDS: SYMBICORT 160-4.5 MCG INHALER INHALATION SCH ×2 (07:52→20:55)
[2021-03-28] MEDS: ALBUTEROL HFA INHALER INHALATION SCH ×4 (07:52→20:55)
[2021-03-28 08:43] LABS: African American GFR (CKD) >90 (>60 ml/min/1.73 sqM); Anion Gap 5 mmol/L; Blood Urea Nitrogen 23 mg/dL (7-17); Calcium 9.5 mg/dL (8.4-10.2); Carbon Dioxide 33 mmol/L (22-30); Chloride 96 mmol/L (98-107); Glucose 149 mg/dL (74-99); LDH 509 U/L (313-618); Non-African American GFR(CKD) >90 (>60 ml/min/1.73 sqM); Potassium 5.6 mmol/L (3.5-5.1); Sodium 134 mmol/L (137-145)
[2021-03-28] MEDS: ZINC SULFATE 220 MG CAP PO SCH (09:20)
[2021-03-28] MEDS: CYCLOBENZAPRINE 10 MG TAB PO SCH ×2 (09:20→21:38)
[2021-03-28] MEDS: PANTOPRAZOLE 40 MG TABLET PO SCH (09:20)
[2021-03-28] MEDS: ASCORBIC ACID 500 MG TAB PO SCH ×2 (09:20→21:38)
[2021-03-28] MEDS: busPIRone HCl 10 MG TAB PO SCH ×3 (09:20→21:38)
[2021-03-28] MEDS: ATORVASTATIN 10 MG TAB PO SCH (09:20)
[2021-03-28] MEDS: ENOXAPARIN 40 MG/0.4 ML SYRINGE SQ SCH (09:21)
[2021-03-28] MEDS: CHOLECALCIFEROL 10 MCG (400 IU) TABLET PO SCH (09:21)
[2021-03-28] MEDS: VENLAFAXINE HCL ER 150 MG CAP PO SCH (09:22)
[2021-03-28 10:30] LABS: ALT 46 U/L (4-34); AST 24 U/L (14-36); Alkaline Phosphatase 59 U/L (38-126); C Reactive Protein 0.8 mg/dL (<1.0); Total Bilirubin 0.5 mg/dL (0.2-1.3); Total Protein 5.8 g/dL (6.3-8.2)
[2021-03-28 11:54] LABS: Glucose,Whole Blood 212 mg/dL (75-99)
--- NOTE | 2021-03-28 11:55 | P.PN ---
Subjective Progress Note Date: 03/28/21 Principal diagnosis: Acute COVID-19 pneumonia On 03/25/2021 patient is seen in follow-up on selective care unit, she sits up in bed, she remains on BiPAP support, with FiO2 of 70%, she is awake and alert, his breathing is improving, her pulse ox is 90-95%, she is breathing comf ortably, she is agreeable to a trial on high flow nasal cannula, afebrile, vital signs have been stable overnight, she continues on high-dose IV steroids with Solu-Medrol 60 mg every 6 hours, she is on Symbicort, she is on multivitamins, and she is on Bariticinib for severe hypoxic rest or a failure related to COVID- 19 pneumonia. Her chest x-ray today shows prominent pulmonary markings, cardiomegaly. Today's labs have been reviewed, her LDH is up to 1201, and CRP is 3.3, relatively stable compared to yesterday, d-dimer 3.26. Lovenox this 40 mg daily. No complaints of chest discomfort. On today's evaluation on 03/26/2021 patient seen in follow-up on selective care unit. She has been alternating between high flow oxygen at 15 L and BiPAP with pressures of 12 and 5 and FiO2 is currently down to 60%, she states she is comfortable on the BiPAP support in between meals and high flow nasal cannula trials, she is breathing fairly comfortably, she is sitting up on the edge of the bed, she is awake and alert, responding appropriately, no complaint of chest discomfort, no new chest x-ray today, especially labs have been reviewed, and potassium is 5.9, today's labs are pending for today, d-dimer yesterday was 3.26, lower extremity Dopplers were negative for DVT. Patient remains on pro phylactic dose Lovenox On 03/27/2021 patient seen in follow-up on selective care unit. Patient is off BiPAP support, and on high flow oxygen currently at 15 L, breathing comfortably, her pulse ox is 97%, however when attempted to drop the FiO2 down she does rapidly desaturates within a few minutes even at rest. For that reason her FiO2 was returned back to 15 L. No complaints of chest discomfort, does get short of breath with any exertion, occasional cough, no fever or chills, patient contin ues on baricitinib, IV Solu-Medrol, and Lovenox 40 mg. Today's labs have been reviewed. White count is 9.7, hemoglobin is 14, platelet, 774, sodium is 134, potassium is 5.3, electrolytess were within normal limits, BUN is 25, creatinine 0.64. On today's evaluation patient is seen in follow-up on selective care unit, she is awake and alert, she is breathing much easier, FiO2 is currently down to 8 L, her pulse ox is 93-95%, vitals have been stable, no fever or chills, no complaints of chest discomfort. Today's labs have been reviewed, d-dimer 0.95, serum sodium is 134, potassium 5.6, chloride is 96, CO2 33, BUN is 23 creatinine 0.51. patient is on Bariticinib,, prophylactic dose Lovenox, and high-dose steroids with Solu-Medrol 60 mg every 6 hours. On new chest x-ray today. No other acute events overnight, overall improving Objective - Vital Signs Vital signs: Vital Signs Temp 98.3 F 03/28/21 09:28 Pulse 82 03/28/21 09:28 Resp 16 03/28/21 09:28 BP 120/66 03/28/21 09:28 Pulse Ox 95 03/28/21 09:28 Intake & Output 03/27/21 03/28/21 03/28/21 18:59 06:59 18:59 Intake Total 1080 540 480 Balance 1080 540 480 Intake: Oral 1080 540 480 Other: Voiding Method Toilet Toilet Toilet # Voids 1 1 - Exam GENERAL EXAM: Alert, very pleasant, obese 65-year-old white female, on 8 L oxygen with a pulse ox of 97%, comfortable in no apparent distress. HEAD: Normocephalic/atraumatic. EYES: Normal reaction of pupils, equal size. Conjunctiva pink, sclera white. NOSE: Clear with pink turbinates. THROAT: No erythema or exudates. NECK: No masses, no JVD, no thyroid enlargement, no adenopathy. CHEST: No chest wall deformity. Symmetrical expansion. LUNGS: Equal air entry with bilateral crackles CVS: Regular rate and rhythm, normal S1 and S2, no gallops, no murmurs, no rubs ABDOMEN: Soft, nontender. No hepatosplenomegaly, normal bowel sounds, no guarding or rigidity. EXTREMITIES: No clubbing, no edema, no cyanosis, 2+ pulses and upper and lower extremities. MUSCULOSKELETAL: Muscle strength and tone normal. SPINE: No scoliosis or deformity SKIN: No rashes CENTRAL NERVOUS SYSTEM: Alert and oriented -3. No focal deficits, tone is normal in all 4 extremities. PSYCHIATRIC: Alert and oriented -3. Appropriate affect. Intact judgment and insight. - Labs CBC & Chem 7: 03/27/21 08:15 03/28/21 07:09 Labs: Abnormal Lab Results - Last 24 Hours (Table) 03/27/21 03/27/21 03/28/21 Range/Units 17:02 20:12 05:57 D-Dimer (<0.60) mg/L FEU Sodium (137-145) mmol/L Potassium (3.5-5.1) mmol/L Chloride (98-107) mmol/L Carbon Dioxide (22-30) mmol/L BUN (7-17) mg/dL Creatinine (0.52-1.04) mg/dL Glucose (74-99) mg/dL POC Glucose (mg/dL) 211 H 222 H 144 H (75-99) mg/dL ALT (4-34) U/L Total Protein (6.3-8.2) g/dL Albumin (3.5-5.0) g/dL 03/28/21 03/28/21 Range/Units 07:09 07:09 D-Dimer 0.95 H (<0.60) mg/L FEU Sodium 134 L (137-145) mmol/L Potassium 5.6 H (3.5-5.1) mmol/L Chloride 96 L (98-107) mmol/L Carbon Dioxide 33 H (22-30) mmol/L BUN 23 H (7-17) mg/dL Creatinine 0.51 L (0.52-1.04) mg/dL Glucose 149 H (74-99) mg/dL POC Glucose (mg/dL) (75-99) mg/dL ALT 46 H (4-34) U/L Total Protein 5.8 L (6.3-8.2) g/dL Albumin 3.0 L (3.5-5.0) g/dL Assessment and Plan Plan: Assessment: #1. Acute hypoxic rest or a failure secondary to acute COVID-19 pneumonia, patient was outside the window for Remdesivir, she was started on Baricitinib on 03/22/2021 for severe hypoxic respiratory failure #2. History of severe persistent bronchial asthma, currently on a daily prednisone on an outpatient basis, and Fasenra #3. History of hyperlipidemia #4. Patient status post 1 dose of COVID 19 vaccine Plan: Patient is off BiPAP support and high flow oxygen, tolerating it very well Currently on 8 L high flow maintaining stable O2 saturations Continue IV steroids, Continue Bariticinib Continue lovenox, vitamins Clinically continues to improve, continue weaning FiO2 Follow inflammatory markers, and d-dimer chst x-ray in the morning, follow-up d-dimer If Chest x-ray findings are stable and improving may consider for discharge home once the oxygen requirement is less than 5 L I performed a history & physical examination of the patient and discussed their management with my nurse practitioner, Carmen Gaines. I reviewed the nurse practitioner's note and agree with the documented findings and plan of care. Lung sounds are positive for diminished breath sounds throughout the lung alanis. The findings and the impression was discussed with the patient. I attest to the documentation by the nurse practitioner. Time with Patient: Less than 30
[2021-03-28] MEDS: BARICITINIB 2 MG TABLET PO SCH (12:12)
[2021-03-28 13:26] VITALS: BMI 34.2
[2021-03-28 17:14] LABS: Glucose,Whole Blood 197 mg/dL (75-99)
--- NOTE | 2021-03-28 19:46 | P.PN ---
Subjective 55-year-old female, with history of hyperlipidemia, transferred to our facility from [facility]. The patient became with a respiratory illness on March 12 and tested positive for coronavirus on March 18. She was there for a couple days, and apparently, because of worsening oxygenation and tolerance of the AIRVO device, she was transferred down for additional evaluation. The patient complains of shortness of breath, cough, fever, and just generally not feeling well. The patient had poor oral intake, as well as muscle aches and joint aches. She received the first of 2 of her buckner virus vaccines. Her was not vaccinated and apparently gave the illness to her. He came to the emergency room, at [place], and received monoclonal antibody. Currently, she is on BiPAP with settings of 12/5 and 70%. Chest x-ray shows diffuse bilateral infiltrates. She does have a previous history of severe asthma, for which she is on daily prednisone 5 mg, as well as Singulair, Breo, and Fasenra, which is a monoclonal antibody against interleukin-5. In addition, she has a history of hyperlipidemia. White count 12.5, hemoglobin 13.2, hematocrit 40.2, platelet count 512,000. D-dimer is 0.36. Sodium potassium chloride CO2 all normal. Anion gap normal. BUN and creatinine were 19 and 0.48. AST 53, LDH 1082, and C-reactive protein is 5. 03/23/2021 The patient is seen and evaluated in room at bedside; currently remains on BiPAP, with settings of IPAP 12, EPAP 5, and 70% FiO2. The patient is receiving appropriate medications including Symbicort, albuterol, Decadron, vitamins, Lovenox, and Bariticinib. When asked, the patient states that she is feeling a bit better. Labs today include a sugar of 110, and a d-dimer of 1.45. LDH is 1985, and C-reactive protein is 5.8. Chest x-ray from today is compared to a chest x-ray done on March 21, does show improvement. 03/24/2021 Patient is a pleasant 55 years old male who presents with respiratory distress and hypoxia secondary to bilateral: Pneumonia he is been followed closely by pulmonary team, currently he is receiving dexamethasone twitches/today to Solu- Medrol 60 mg. Also his receiving Baricitinib till 04/04. He is also covered with vitamin C, D and zinc. On Singulair. Today he was sitting in chair able to talk with some dyspnea. He denies chest p ain or diarrhea. Tachypneic with a breathing rate 18-26. Requirements stable needed and BiPAP and at 15 L via high flow nasal cannula with FiO2 of 70%. Rest of Vitas looks stable. Repeat chest x-ray and inflammatory markers and BMP in the morning All his questions were answered 03/25/2021 Patient is still dyspneic and cystoscopy on BiPAP, she was placed on 15 L oxygen via nasal cannula treat she desaturated to mid 80s.. She still here for bilateral: Pneumonia and chest x-ray today showing persistent atypical pneumonia with prominent vascular markings. However she is awake and talking joe ropriately. A d-dimer was elevated today at 3.2, her lactate dehydrogenase is slightly trending down to 1038, While C-reactive protein improved to 3.7. She is covered with Solu-Medrol 60 mg, Baricitinib. Multiple vitamins and Lovenox 40 mg per pulmonary team recommendation wh the patient closely 03/26/2021 Patient clinically the same still on 15 L oxygen via nasal cannula, currently tachypneic or dyspneic although she has some subjective feeling of better. No labs from today and her glucose control Ultrasound of the leg is negative for DVT Patient is continued with same treatment Solu-Medrol 60 mg, Baricitinib. Multiple vitamins and Lovenox 40 mg 03/27/2021 Patient is with bilateral: Pneumonia and hypoxia. Is been clinically stable looks the same over the last 3-4 days, her breathing is less tachypneic today at 22, however she is a still on 15 L oxygen via nasal cannula, afebrile. Labs from today including CBC and BMP are stable. She remains on the same treatment of Solu-Medrol 60 mg, Baricitinib. Multiple vitamins and Lovenox 40 mg 03/28/21 Patient respiratory distress is significantly improved and today her oxygen requirement went down to 8 L and later on 3 L/m she is off BiPAP Other than that she is hemodynamically stable and labs are stable. Her d-dimer is 0.95. She has some little abnormality with sodium potassium today and we are going to check labs tomorrow. Also we will check her lactate dehydrogenase and C-reactive protein and chest x-ray with possible discharge in 24 hours. She continued to improve and remained stable. Objective - Vital Signs Vital signs: Vital Signs Temp 98.3 F 03/28/21 09:28 Pulse 82 03/28/21 09:28 Resp 16 03/28/21 09:28 BP 120/66 03/28/21 09:28 Pulse Ox 95 03/28/21 09:28 Intake & Output 03/27/21 03/28/21 03/28/21 18:59 06:59 18:59 Intake Total 1080 540 480 Balance 1080 540 480 Intake: Oral 1080 540 480 Other: Voiding Method Toilet Toilet Toilet # Voids 1 1 - Exam GENERAL: The patient is alert and oriented x3, not in any acute distress. Well developed, well nourished. HEENT: Pupils are round and equally reacting to light. EOMI. No scleral icterus. No conjunctival pallor. Normocephalic, atraumatic. No pharyngeal erythema. No thyromegaly. CARDIOVASCULAR: S1 and S2 present. No murmurs, rubs, or gallops. -PULMONARY: Chest is clear to auscultation, no wheezing. bilateral crepitation. tachypneic ABDOMEN: Soft, nontender, nondistended, normoactive bowel sounds. No palpable organomegaly. MUSCULOSKELETAL: No joint swelling or deformity. EXTREMITIES: No cyanosis, clubbing, or pedal edema. NEUROLOGICAL: Gross neurological examination did not reveal any focal deficits. SKIN: No rashes. no petechiae. - Labs CBC & Chem 7: 03/27/21 08:15 03/28/21 07:09 Labs: Abnormal Lab Results - Last 24 Hours (Table) 03/27/21 03/27/21 03/28/21 Range/Units 17:02 20:12 05:57 D-Dimer (<0.60) mg/L FEU Sodium (137-145) mmol/L Potassium (3.5-5.1) mmol/L Chloride (98-107) mmol/L Carbon Dioxide (22-30) mmol/L BUN (7-17) mg/dL Creatinine (0.52-1.04) mg/dL Glucose (74-99) mg/dL POC Glucose (mg/dL) 211 H 222 H 144 H (75-99) mg/dL ALT (4-34) U/L Total Protein (6.3-8.2) g/dL Albumin (3.5-5.0) g/dL 03/28/21 03/28/21 03/28/21 Range/Units 07:09 07:09 11:53 D-Dimer 0.95 H (<0.60) mg/L FEU Sodium 134 L (137-145) mmol/L Potassium 5.6 H (3.5-5.1) mmol/L Chloride 96 L (98-107) mmol/L Carbon Dioxide 33 H (22-30) mmol/L BUN 23 H (7-17) mg/dL Creatinine 0.51 L (0.52-1.04) mg/dL Glucose 149 H (74-99) mg/dL POC Glucose (mg/dL) 212 H (75-99) mg/dL ALT 46 H (4-34) U/L Total Protein 5.8 L (6.3-8.2) g/dL Albumin 3.0 L (3.5-5.0) g/dL Assessment and Plan Assessment: Assessment and Plan 1. Acute hypoxemic respiratory failure; patient is currently on repeated her oxygen via NC saturating in 90s percent 2. COVID-19 pneumonia Patient has been evaluated by pulmonary service and is beyond the seven-day window for REM. the patient's place and an albuterol inhaler, Symbicort, 160 /4.5, 2 puffs twice a day, vitamin C, vitamin D3, and zinc, as well as Singulair, Solu-Medrol 60 mg, and Lovenox 40 mg subcu daily. 3. History of severe asthma; patient is currently on prednisone 5 mg daily and monoclonal anti-body against interleukin-5; Singulair 10 mg daily 4. Hyperlipidemia; Zocor 20 mg daily at bedtime 5. Anxiety/depression; remains on BuSpar 5 mg daily and Effexor 150 mg daily DVT prophylaxis; subcu Lovenox CODE STATUS; DO NOT RESUSCITATE
[2021-03-28 20:50] LABS: Glucose,Whole Blood 242 mg/dL (75-99)
[2021-03-28] MEDS: MONTELUKAST 10 MG TAB PO SCH (21:38)
[2021-03-29 05:58] LABS: Glucose,Whole Blood 170 mg/dL (75-99)
[2021-03-29 06:26] VITALS: RESP 18
[2021-03-29] MEDS: methylPREDNISolone SOD SUCCI 125 MG/2 ML VIAL IV SCH (06:26)
[2021-03-29] MEDS: INSULIN ASPART (NovoLOG) 100 UNIT/ML VIAL SQ SCH ×3 (06:26→17:01)
[2021-03-29] MEDS: ALBUTEROL HFA INHALER INHALATION SCH ×3 (07:35→14:46)
[2021-03-29] MEDS: SYMBICORT 160-4.5 MCG INHALER INHALATION SCH (07:37)
--- NOTE | 2021-03-29 07:49 | XR ---
EXAMINATION TYPE: XR chest 1V portable DATE OF EXAM: 03/29/2021 CLINICAL HISTORY: Difficulty breathing and COVID progress study. TECHNIQUE: Single AP portable upright view of the chest is obtained. COMPARISON: Chest x-ray from 4 days earlier and older studies. FINDINGS: Background chronic cardiomegaly and chronic parenchymal changes with improved aeration bila terally. Osseous structures are intact. IMPRESSION: Improving bilateral multifocal opacities consistent with resolving covid-19 infection, co rrelate clinically.
[2021-03-29 07:51] LABS: Sodium 132 mmol/L (137-145)
[2021-03-29 07:56] LABS: African American GFR (CKD) >90 (>60 ml/min/1.73 sqM); Anion Gap 7 mmol/L; Blood Urea Nitrogen 28 mg/dL (7-17); C Reactive Protein 0.5 mg/dL (<1.0); Calcium 9.8 mg/dL (8.4-10.2); Carbon Dioxide 31 mmol/L (22-30); Chloride 94 mmol/L (98-107); Glucose 161 mg/dL (74-99); LDH 468 U/L (313-618); Non-African American GFR(CKD) >90 (>60 ml/min/1.73 sqM); Potassium 5.6 mmol/L (3.5-5.1)
[2021-03-29] MEDS: ENOXAPARIN 40 MG/0.4 ML SYRINGE SQ SCH (09:04)
[2021-03-29] MEDS: CYCLOBENZAPRINE 10 MG TAB PO SCH (09:04)
[2021-03-29] MEDS: busPIRone HCl 10 MG TAB PO SCH ×2 (09:04→15:50)
[2021-03-29] MEDS: ATORVASTATIN 10 MG TAB PO SCH (09:04)
[2021-03-29] MEDS: CHOLECALCIFEROL 10 MCG (400 IU) TABLET PO SCH (09:04)
[2021-03-29] MEDS: ASCORBIC ACID 500 MG TAB PO SCH (09:04)
[2021-03-29] MEDS: ZINC SULFATE 220 MG CAP PO SCH (09:05)
[2021-03-29] MEDS: VENLAFAXINE HCL ER 150 MG CAP PO SCH (09:05)
[2021-03-29] MEDS: PANTOPRAZOLE 40 MG TABLET PO SCH (09:05)
--- NOTE | 2021-03-29 10:20 | P.PN ---
Subjective Progress Note Date: 03/29/21 Principal diagnosis: Acute COVID-19 pneumonia On 03/25/2021 patient is seen in follow-up on selective care unit, she sits up in bed, she remains on BiPAP support, with FiO2 of 70%, she is awake and alert, his breathing is improving, her pulse ox is 90-95%, she is breathing comf ortably, she is agreeable to a trial on high flow nasal cannula, afebrile, vital signs have been stable overnight, she continues on high-dose IV steroids with Solu-Medrol 60 mg every 6 hours, she is on Symbicort, she is on multivitamins, and she is on Bariticinib for severe hypoxic rest or a failure related to COVID- 19 pneumonia. Her chest x-ray today shows prominent pulmonary markings, cardiomegaly. Today's labs have been reviewed, her LDH is up to 1201, and CRP is 3.3, relatively stable compared to yesterday, d-dimer 3.26. Lovenox this 40 mg daily. No complaints of chest discomfort. On today's evaluation on 03/26/2021 patient seen in follow-up on selective care unit. She has been alternating between high flow oxygen at 15 L and BiPAP with pressures of 12 and 5 and FiO2 is currently down to 60%, she states she is comfortable on the BiPAP support in between meals and high flow nasal cannula trials, she is breathing fairly comfortably, she is sitting up on the edge of the bed, she is awake and alert, responding appropriately, no complaint of chest discomfort, no new chest x-ray today, especially labs have been reviewed, and potassium is 5.9, today's labs are pending for today, d-dimer yesterday was 3.26, lower extremity Dopplers were negative for DVT. Patient remains on pro phylactic dose Lovenox On 03/27/2021 patient seen in follow-up on selective care unit. Patient is off BiPAP support, and on high flow oxygen currently at 15 L, breathing comfortably, her pulse ox is 97%, however when attempted to drop the FiO2 down she does rapidly desaturates within a few minutes even at rest. For that reason her FiO2 was returned back to 15 L. No complaints of chest discomfort, does get short of breath with any exertion, occasional cough, no fever or chills, patient contin ues on baricitinib, IV Solu-Medrol, and Lovenox 40 mg. Today's labs have been reviewed. White count is 9.7, hemoglobin is 14, platelet, 774, sodium is 134, potassium is 5.3, electrolytess were within normal limits, BUN is 25, creatinine 0.64. On today's evaluation patient is seen in follow-up on selective care unit, she is awake and alert, she is breathing much easier, FiO2 is currently down to 8 L, her pulse ox is 93-95%, vitals have been stable, no fever or chills, no complaints of chest discomfort. Today's labs have been reviewed, d-dimer 0.95, serum sodium is 134, potassium 5.6, chloride is 96, CO2 33, BUN is 23 creatinine 0.51. patient is on Bariticinib,, prophylactic dose Lovenox, and high-dose steroids with Solu-Medrol 60 mg every 6 hours. On new chest x-ray today. No other acute events overnight, overall improving On today's evaluation on 03/29/2021 patient is seen on selective care unit, she is breathing comfortably, FiO2 is currently down to 2 L, pulse ox is 93-94%, no fever or chills, vital signs have been stable, patient has not used BiPAP support in the last couple of days, follow-up chest x-ray today has been reviewed showing improving bilateral multifocal opacities consistent with resolving COVID-19 infection. No acute events overnight, patient continues on Baricitinib, she is on Solu-Medrol 60 mg every 6 hours, she is on prophylactic dose Lovenox, clinically improving, today's labs have been reviewed, d-dimer 0.77, sodium is 132, potassium 5.6, chloride is 94, CO2 31, BUN is 28, creatinine 0.58. LDH is within normal limits at 468, and CRP is 0.5 Objective - Vital Signs Vital signs: Vital Signs Temp 98.5 F 03/29/21 04:00 Pulse 66 03/29/21 04:00 Resp 18 03/29/21 04:00 BP 112/60 03/29/21 04:00 Pulse Ox 93 L 03/29/21 07:37 Intake & Output 03/28/21 03/29/21 03/29/21 18:59 06:59 18:59 Intake Total 1200 236 Output Total 400 Balance 800 236 Weight 105 kg Intake: Oral 1200 236 Output: Urine 400 Other: Voiding Method Toilet # Voids 3 1 - Exam GENERAL EXAM: Alert, very pleasant, obese 65-year-old white female, on 2 L oxygen with a pulse ox of 97%, comfortable in no apparent distress. HEAD: Normocephalic/atraumatic. EYES: Normal reaction of pupils, equal size. Conjunctiva pink, sclera white. NOSE: Clear with pink turbinates. THROAT: No erythema or exudates. NECK: No masses, no JVD, no thyroid enlargement, no adenopathy. CHEST: No chest wall deformity. Symmetrical expansion. LUNGS: Equal air entry with bilateral crackles CVS: Regular rate and rhythm, normal S1 and S2, no gallops, no murmurs, no rubs ABDOMEN: Soft, nontender. No hepatosplenomegaly, normal bowel sounds, no guarding or rigidity. EXTREMITIES: No clubbing, no edema, no cyanosis, 2+ pulses and upper and lower extremities. MUSCULOSKELETAL: Muscle strength and tone normal. SPINE: No scoliosis or deformity SKIN: No rashes CENTRAL NERVOUS SYSTEM: Alert and oriented -3. No focal deficits, tone is normal in all 4 extremities. PSYCHIATRIC: Alert and oriented -3. Appropriate affect. Intact judgment and insight. - Labs CBC & Chem 7: 03/27/21 08:15 03/29/21 06:46 Labs: Abnormal Lab Results - Last 24 Hours (Table) 03/28/21 03/28/21 03/28/21 Range/Units 07:09 11:53 17:00 D-Dimer (<0.60) mg/L FEU Sodium (137-145) mmol/L Potassium (3.5-5.1) mmol/L Chloride (98-107) mmol/L Carbon Dioxide (22-30) mmol/L BUN (7-17) mg/dL Glucose (74-99) mg/dL POC Glucose (mg/dL) 212 H 197 H (75-99) mg/dL ALT 46 H (4-34) U/L Total Protein 5.8 L (6.3-8.2) g/dL Albumin 3.0 L (3.5-5.0) g/dL 03/28/21 03/29/2103/29/21 Range/Units 20:26 05:45 06:46 D-Dimer 0.77 H (<0.60) mg/L FEU Sodium (137-145) mmol/L Potassium (3.5-5.1) mmol/L Chloride (98-107) mmol/L Carbon Dioxide (22-30) mmol/L BUN (7-17) mg/dL Glucose (74-99) mg/dL POC Glucose (mg/dL) 242 H 170 H (75-99) mg/dL ALT (4-34) U/L Total Protein (6.3-8.2) g/dL Albumin (3.5-5.0) g/dL 03/29/21 Range/Units 06:46 D-Dimer (<0.60) mg/L FEU Sodium 132 L (137-145) mmol/L Potassium 5.6 H (3.5-5.1) mmol/L Chloride 94 L (98-107) mmol/L Carbon Dioxide 31 H (22-30) mmol/L BUN 28 H (7-17) mg/dL Glucose 161 H (74-99) mg/dL POC Glucose (mg/dL) (75-99) mg/dL ALT (4-34) U/L Total Protein (6.3-8.2) g/dL Albumin (3.5-5.0) g/dL Assessment and Plan Plan: Assessment: #1. Acute hypoxic rest or a failure secondary to acute COVID-19 pneumonia, patient was outside the window for Remdesivir, she was started on Baricitinib on 03/22/2021 for severe hypoxic respiratory failure #2. History of severe persistent bronchial asthma, currently on a daily prednisone on an outpatient basis, and Fasenra #3. History of hyperlipidemia #4. Patient status post 1 dose of COVID 19 vaccine Plan: Continues to improve Currently on 2 L high flow maintaining stable O2 saturations Obtain home O2 evaluation Stop IV steroids, and transition to oral prednisone milligram daily Stop Bariticinib chest x-ray in the morning, reviewed, showing improving pneumonia From pulmonary perspective she can be discharged home today, on prednisone taper, no need for anti-coagulants, no need to continue Baricitinib Follow-up with Dr. Og in the office in 2-3 weeks I performed a history & physical examination of the patient and discussed their management with my nurse practitioner, Carmen Gaines. I reviewed the nurse practitioner's note and agree with the documented findings and plan of care. Lung sounds are positive for diminished breath sounds throughout the lung alanis. The findings and the impression was discussed with the patient. I attest to the documentation by the nurse practitioner. Time with Patient: Less than 30
[2021-03-29 11:48] LABS: Glucose,Whole Blood 189 mg/dL (75-99)
[2021-03-29 12:12] VITALS: TEMP 98
[2021-03-29 16:42] VITALS: BP 112/70; PULSE 76
[2021-03-29 16:48] LABS: Glucose,Whole Blood 164 mg/dL (75-99)
--- NOTE | 2021-03-29 21:48 | P.DS ---
Providers Date of admission: 03/21/21 02:23 Attending physician: Jameel Hall MD Consults: 03/21/21 03:08 Consult Physician Routine Consulting Provider: Eduardo Og Consult Reason/Comments: COVID19 Do you want consulting provider notified?: Yes Primary care physician: Stated None Hospital Course: Diagnoses: Bilateral COVID-19 pneumonia Acute hypoxic respiratory failure secondary to above, improving Crease inflammatory markers Hyperlipidemia History of asthma, not an active issue History of depression and anxiety, not an active issue. Hospital course: 55-year-old female, with history of hyperlipidemia, transferred to our facility from [facility]. The patient became with a respiratory illness on March 12 and tested positive for coronavirus on March 18. She was there for a couple days, and apparently, because of worsening oxygenation and tolerance of the AIRVO device, she was transferred down for additional evaluation. Patient has been evaluated by breaker up machine operator, she was treated with dexamethasone and later with Solu-Medrol, also received barictinib and multiple vitamins including vitamin C, D and zinc. Patient needed high-dose of oxygen at 15 L/m with the treatment gradually started to improve, today significantly her oxygenation down to 2 L/m, also she qualify for home oxygen which is delivered at bedside. Her dyspnea is minimal and she denies chest pain or abdominal pain or fever or any other symptoms. She feels a stable to go home today. Patient was cleared for discharge by breaker up machine operator on tapered dose of steroids only and multiple vitamins is provided for her. Problems and management plan were discussed with the patient and he verbalized understanding and acceptance Patient was found stable and can be discharged home however he needs follow-up as an outpatient. Patient was instructed to follow up with PCP within one week and patient agrees Patient was instructed to follow up with her breaker up machine operator Dr. Og in 2-3 weeks and she agrees to call and make appointment as today is weekend Physical exam Gen: patient is a AAOx3, no distress CVS: S1-S2, RRR, no murmur Lungs: B/L CTA, no wheezing Abdomen: soft, no distention, no tenderness, positive bowel sounds Extremity: no leg edema or induration Time spent more than 35 minutes Plan - Discharge Summary Discharge Rx Participant: Yes New Discharge Prescriptions: New Albuterol Inhaler [Ventolin Hfa Inhaler] 2 puff INHALATION RT-QID #1 inh Cholecalciferol [Vitamin D3 (10 Mcg = 400 Iu)] 10 mcg PO DAILY #30 tablet predniSONE 0 mg PO DIRECTED 16 Days #40 tab Zinc Sulfate [Orazinc] 220 mg PO DAILY #30 cap Ascorbic Acid [Vitamin C] 500 mg PO BID #60 tab Continue hydrOXYzine HCL [Atarax] 25 mg PO TID PRN PRN Reason: Itching Cyclobenzaprine [Flexeril] 10 mg PO BID Pantoprazole Sodium [Protonix] 40 mg PO DAILY busPIRone HCl [Buspar] 10 mg PO TID Montelukast [Singulair] 10 mg PO HS Meloxicam [Mobic] 15 mg PO DAILY PRN PRN Reason: Pain Benralizumab [Fasenra] 30 mg SQ Q56D predniSONE 5 mg PO DAILY Venlafaxine HCl ER [Effexor XR] 150 mg PO DAILY Simvastatin [Zocor] 20 mg PO DAILY Fluticasone/Vilanterol [Breo Ellipta 200-25 Mcg Inhaler] 1 puff INHALATION RT-DAILY Discharge Medication List Benralizumab [Fasenra] 30 mg SQ Q56D 03/21/21 [History] Cyclobenzaprine [Flexeril] 10 mg PO BID 03/21/21 [History] Fluticasone/Vilanterol [Breo Ellipta 200-25 Mcg Inhaler] 1 puff INHALATION RT- DAILY 03/21/21 [History] Meloxicam [Mobic] 15 mg PO DAILY PRN 03/21/21 [History] Montelukast [Singulair] 10 mg PO HS 03/21/21 [History] Pantoprazole Sodium [Protonix] 40 mg PO DAILY 03/21/21 [History] Simvastatin [Zocor] 20 mg PO DAILY 03/21/21 [History] Venlafaxine HCl ER [Effexor XR] 150 mg PO DAILY 03/21/21 [History] busPIRone HCl [Buspar] 10 mg PO TID 03/21/21 [History] hydrOXYzine HCL [Atarax] 25 mg PO TID PRN 03/21/21 [History] predniSONE 5 mg PO DAILY 03/21/21 [History] Albuterol Inhaler [Ventolin Hfa Inhaler] 2 puff INHALATION RT-QID #1 inh 03/29/21 [Rx] Ascorbic Acid [Vitamin C] 500 mg PO BID #60 tab 03/29/21 [Rx] Cholecalciferol [Vitamin D3 (10 Mcg = 400 Iu)] 10 mcg PO DAILY #30 tablet 03/29/21 [Rx] Zinc Sulfate [Orazinc] 220 mg PO DAILY #30 cap 03/29/21 [Rx] predniSONE 0 mg PO DIRECTED 16 Days #40 tab 03/29/21 [Rx] Follow up Appointment(s)/Referral(s): Eduardo Og DO [Doctor of Osteopathic Medicine] - 2 Weeks (breaker up machine operator- office closed wednesday, pt call to schedule) None,Stated [Primary Care Provider] - 1 Week (office closed, pt call to schedule) Activity/Diet/Wound Care/Special Instructions: Low carbohydrate diet Activity is restricted till you see your doctor Discharge Disposition: HOME SELF-CARE
[2021-03-30] MEDS ORDERED: predniSONE 20 MG TAB PO SCH (09:00)
== END 2021-03-29 17:49 | disposition home or self-care (01) | DRG 177 ==
LOC: 3SCARD 02:23
PROVIDERS: ADMIT Internal Medicine; ATTEND Internal Medicine
DX: U07.1 COVID-19 (principal); J12.82 Pneumonia due to coronavirus disease 2019; J96.01 Acute respiratory failure with hypoxia; E78.5 Hyperlipidemia, unspecified; Z66 Do not resuscitate; Z79.1 Long term (current) use of non-steroidal anti-inflammatories (NSAID); Z79.51 Long term (current) use of inhaled steroids; Z79.52 Long term (current) use of systemic steroids; Z79.899 Other long term (current) drug therapy; Z90.81 Acquired absence of spleen; F32.9 Major depressive disorder, single episode, unspecified; F41.9 Anxiety disorder, unspecified; J45.909 Unspecified asthma, uncomplicated
CPT/HCPCS: 71045; 80048; 80053; 83615; 85025; 85027; 85379; 86140; 93970; 94640; 94660; 94760